=== PATIENT | female | born 1950 | race Caucasian/White ===

== ENCOUNTER 2019-02-09 10:46 | Inpatient (IN) | payer MEDICARE, SELFPAY ==
[2019-02-09] VITALS (20 sets, daily range): BP systolic 106–157; BP diastolic 55–101; PULSE 67–140; RESP 12–36; TEMP 36.1–36.7; O2SAT 94–100; BMI 22.8; BMI 24.3
--- NOTE | 2019-02-09 11:01 | RAD_ITS ---
STUDY: X-RAY CHEST REASON FOR EXAM: Female, 68 years old. Shortness of breath, dyspnea TECHNIQUE: AP COMPARISON: None. FINDINGS: EKG leads project over the chest. There is hyperinflation of the lungs consistent with chronic obstructive lung disease (COPD). Asymmetric parenchymal opacity of the right lung. There is no demonstrated pleural abnormality. There is moderate cardiac enlargement. Normal mediastinum and vaibhav. Normal visualized pulmonary arteries. Normal visualized aortic arch and descending thoracic aorta. There is S-shaped scoliosis of the thoracolumbar spine. Normal visualized ribs, clavicles, and shoulders. There is no demonstrated abnormality of the visualized soft tissue structures of the upper abdomen. RAD/Chest 1 View (Portable) IMPRESSION: 1. Right lower lobe infiltrate could represent pneumonia. 2. Chronic obstructive airway disease. 3. Cardiomegaly. Electronically Signed: Alireza Gerber MD at 11:47 EDT , Service support ,
--- NOTE | 2019-02-09 11:02 | EKG12_ITS ---
Test Reason : SOB Blood Pressure : / mmHG Vent. Rate : 138 BPM Atrial Rate : 138 BPM P-R Int : 136 ms QRS Dur : 086 ms QT Int : 288 ms P-R-T Axes : 079 083 078 degrees QTc Int : 436 ms Sinus tachycardia Septal infarct , age undetermined Lateral infarct , age undetermined , cannot be excluded Abnormal ECG Confirmed by DIONY FORTE, KAREY ([id number]), photography editor LUIS DANIEL AHUJA ([id number]) on 02/11/2019 4:03:30 PM Referred By: MARYANA Confirmed By:KAREY VORA MD
[2019-02-09] MEDS: MethylPREDNISolone 125 MG/2 ML Vial 100 MG IV (11:14)
[2019-02-09] MEDS: 0.9% Normal Saline 1,000 ML 15 ML IV (11:14)
[2019-02-09 11:21] LABS: Absolute Lymphocyte Count 0.82 X10^3/ul (0.83-4.51); Absolute Neutrophil Count 9.3 X10^3/uL (2.0-7.7); Basophil# 0.02 X10^3/uL; Basophil% 0.2 % (0-1); Eosinophil# 0.02 X10^3/uL; Eosinophils% 0.2 % (0-5); Hematocrit 36.6 % (37-47); Hemoglobin 11.3 g/dl (12.0-15.0); Lymphocyte # 0.82 X10^3/ul (4.0); Lymphocyte % 7.5 % (19-41); Mean Corp Hgb Conc 30.9 g/gl (32-36); Mean Corpuscular Hgb 25.8 pg (27.0-32.0); Mean Corpuscular Volume 83.6 fL (81-99); Mean Platelet Vol. 9.6 fl (6.2-12.0); Monocyte# 0.73 X10^3/uL; Monocyte% 6.7 % (0-10); Neutrophil # 9.33 X10^3/uL (2.7-7.7); Neutrophil % 85.3 % (47-70); POSITIVE COUNT NO; POSITIVE DIFFERENTIAL NO; POSITIVE MORPHOLOGY NO; Platelet Count 467 K/mm3 (150-450); RBC Distribution Width CV 14.6 % (11.6-14.6); RBC Distribution Width SD 44.8 fl (35.1-43.9); Red Blood Count 4.38 M/mm3 (4.2-5.4); White Blood Count 10.9 K/mm3 (4.4-11.0)
[2019-02-09 11:34] LABS: Anion Gap 8 (5-15); BUN 16 mg/dL (7-18); BUN/Creat Ratio 18.6 RATIO (10-20); Chloride 99 mmol/L (98-107); Creatinine, Serum 0.86 mg/dL (0.55-1.02); EST Glomerular Filtration Rate 70 mL/min (>60); Est Glom Filt Rate - Afr Amer 85 mL/min (>60); Estimated Creatinine Clearance 50.89 ml/min; Glucose 158 mg/dL (74-106); Potassium 4.3 mmol/L (3.5-5.1); Sodium Level 133 mmol/L (136-145)
[2019-02-09] MEDS: Ceftriaxone 1 GM/50 ML BAG IV (12:29)
[2019-02-09 12:57] LABS: Lactic Acid 2.5 mmol/L (0.4-2.0)
--- NOTE | 2019-02-09 13:04 | ED.VISSUMM ---
- ER Visit Summary Date of Service: 02/09/19 Chief Complaint: Shortness of breath History of Present Illness: The patient is a 68 F with shortness of breath that started yesterday. Patient does report some right upper chest tenderness that is reproducible. She has not had significant cough. She is a history of COPD but does not normally require oxygen or even use treatments at home at baseline. Patient states she did recently help take a cover off of the pool that had dirty water on top. She initially thought her chest soreness was from this. Physical Examination: Blood pressure is 157/96, temperature 97.4, heart rate 131, respiratory rate 36, pulse ox 94% on room air. Patient is sitting upright. She is tachypneic and speaking in short sentences. Heart is tachycardic. Lung sounds are diminished throughout. Abdomen is soft nontender. Test Results: EKG is sinus tach at 138. Anterior Q waves are noted. There is no prior study available for comparison. CBC was normal white count with 85% neutrophils. Hemoglobin 11.3. Chemistry studies grossly unremarkable. Troponin is indeterminate at 0.082. Lactate is 2.5. Portable chest x-ray shows right lower lobe infiltrate which may represent pneumonia. COPD changes are noted along with cardiomegaly. Emergency Department Course and Treatment: Patient was given Solu-Medrol along with aerosols. She had extreme air hunger and was placed on BiPAP which has greatly improved her symptoms. Patient has been given Rocephin and Zithromax. She will be admitted for further treatment. Treatment Plan: [] Disposition: Admit Impression: 1. COPD exacerbation 2. Right lower lobe pneumonia 3. Elevated troponin This note was generated with [employer] dictation software. It may contain incorrect words, spelling, and punctuation that were not noted in review of the chart prior to signing ED Disposition - Plan for ED Patient: Referrals: Linda Hooper MD [Primary Care Provider] -
--- NOTE | 2019-02-09 13:50 | PCM.HP.STD ---
Problem List (1) COPD exacerbation Status: Chronic (2) Right lower lobe pneumonia Status: Acute (3) Sepsis Status: Acute (4) Acute respiratory failure Status: Acute History of Present Illness Date of Admission: 02/09/19 Chief Complaint: Shortness of breath The patient is a 68 year old F with no past medical history presents with not feeling well for the last several days. She has had intermittent episodes of not feeling well and then feeling well over the last couple of weeks. She did not feel well on Mother's Day but that resolved. She does not see a doctor regularly. She presented today for shortness of breath and was found to have a right lower lobe pneumonia and was significantly tachycardic to 130-140. She was found to have an elevated troponin and elevated lactic acid to 2.5. In the ER she was giving a breathing treatment as well as a dose of steroids and started on BiPAP. She was also given azithromycin and Rocephin. She has right-sided chest pain which is reproducible on palpation. She denies having a history of chest pain or shortness of breath with exertion. Past Medical History Past Medical History (Chronic Problems): Chronic Problems COPD exacerbation (Chronic) Allergies No Known Allergies Allergy (Verified 02/09/19 10:48) Home Medications: Ambulatory Orders Medication Instructions Recorded Aspirin [Aspirin, Baby] 81 mg PO DAILY@0800 02/09/19 Multivitamin with Minerals 1 each PO DAILY 02/09/19 [Multiple Vitamin] Vitamin B Complex [B Complex] 1 each PO DAILY 02/09/19 Surgical History: no surgical history Smoking Status: Former smoker Tobacco Use: Cigarettes Alcohol: None Drugs: None - *Family History Maternal History Items: COPD, Heart Disease Paternal History Items: Heart Disease Review of Systems Constitutional: Denies: Chills, Fever, Weight Change HEENT: Denies: Head Aches, Sinus Congestion, Sinus Drainage Cardiovascular: Denies: Chest Pain, Palpitations Respiratory: Reports: Shortness of Breath. Denies: Cough, Shortness of breath at rest, Sputum production Gastrointestinal: Denies: Abdominal Pain, Nausea, Vomiting Genitourinary: Denies: Dysuria Musculoskeletal: Denies: Joint Pain, Joint Tenderness Skin: Denies: Rash, Wounds Neurological: Denies: Numbness, Tingling, Focal weakness Psychiatric: Denies: Anxiety, Depression Hematologic/ Lymphatic: Denies: Easy Bruising, Easy Bleeding VTE Information - Inpt Only VTE Present on Admission: No Patient Problems: Active and Suspected Problems Right lower lobe pneumonia (Acute) Sepsis (Acute) Acute respiratory failure (Acute) - Physical Exam General: Alert, Oriented x3, Cooperative, - - Mild distress now that she is comfortable on the BiPAP HEENT: Atraumatic, PERRLA, EOMI, Normocephalic Oral: Dry Mucosa Neck: Supple, No JVD Lungs: Clear to auscultation, - - Very poor air movement Cardiovascular: Regular Rhythm, Normal S1, Normal S2, No murmurs, Tachycardic Abdomen: Soft, Non Tender, Non-Distended, No Hepato-splenomegaly Extremities: No edema, Capillary Refill Less than 3 Seconds Skin: No rashes, No breakdown Neurological: Neuro grossly intact, Sensory exam intact to light touch and pain Psych/Mental Status: Normal Affect, Appropriate Vital Signs Temp Pulse Resp BP Pulse Ox 97.4 F L 129 H 30 H 141/73 H 95 02/09/19 10:48 02/09/19 13:27 02/09/19 13:27 02/09/19 13:27 02/09/19 13:27 Oxygen Flow Rate (L/min) 2 Oxygen Delivery Method Bi-pap Weight: 125 lb Body Mass Index (BMI) 22.8 Laboratory Tests Past 24 Hrs 02/09/19 02/09/19 02/09/19 10:59 10:59 10:59 WBC 10.9 RBC 4.38 Hgb 11.3 L Hct 36.6 L MCV 83.6 MCH 25.8 L MCHC 30.9 L RDW 14.6 RDW Differential 44.8 H Plt Count 467 H MPV 9.6 Immature Gran % (Auto) 0.100 Neut % (Auto) 85.3 H Lymph % (Auto) 7.5 L [place] % (Auto) 6.7 Eos % (Auto) 0.2 Baso % (Auto) 0.2 Absolute Neuts (auto) 9.3 H Absolute Lymphs (auto) 0.82 L Total Counted Not Reportable Sodium 133 L Potassium 4.3 Chloride 99 Carbon Dioxide 26.0 Anion Gap 8 BUN 16 Creatinine 0.86 Estim Creat Clear Calc 50.89 Est GFR (MDRD) Af Amer 85 Est GFR (MDRD) Non-Af 70 BUN/Creatinine Ratio 18.6 Glucose 158 H Lactic Acid 2.5 H Calcium 9.0 Troponin I 0.082 H Assessment/Plan All Active Problems Right lower lobe pneumonia (Acute) Sepsis (Acute) Acute respiratory failure (Acute) 1. Acute respiratory distress secondary to community-acquired pneumonia and COPD exacerbation leading to sepsis -We will obtain a strep and Legionella urine antigen -Will treat her COPD with IV steroids and aerosols -We will continue with Unasyn and azithromycin for her pneumonia -Blood cultures, and sputum culture pending -We will continue with the BiPAP for now -She does not appear to be hypoxic on admission with a sat of 94% however given her tachypnea and her use of accessory muscles she was placed on BiPAP prior to my evaluation -Lactate is 2.5, will give her IV fluids at 125 cc/h and follow the lactic acid 2. Elevated troponin -She has no history of cardiac disease -This is more than likely secondary to her extreme tachycardia and sepsis -We will trend however will not likely intervene until she is stable from a respiratory status DVT: Lovenox Code Visit Inpatient E&M: 77027 Init Hosp L3
[2019-02-09 16:02] LABS: Reflex Lactate? Y
--- NOTE | 2019-02-09 16:03 | CPS ---
Pt transferred from ER to PCU on Bipap. Pt bk transport well on Bipap. Pt to room and transferred from ER cot to PCU bed while still on Bipap and made transfer on own. Post transfer pt became very anxious and stated she couldn't breath. Attempt to calm pt down was made. Pt stated that she wasn't getting any oxygen. Pt was reassured that she was and informed that Bipap machine was operating properly and her pulse ox was 97% and that's good. Pt BS were diminished bilateral. Albuterol was administered by aerosol. Dr Galloway at bedside to assess pt. Pt stated she felt much better post aerosol rx
[2019-02-09 16:57] LABS: Lactic Acid 2.6 mmol/L (0.4-2.0)
[2019-02-09] MEDS: 0.9% Normal Saline 1,000 ML 125 ML IV (18:02)
[2019-02-09] MEDS: Ipratropium/Albuterol Sulfate 3 ML AMPUL.NEB INHALATION ×2 (19:21→22:45)
[2019-02-09] MEDS: 0.9% NaCl Peripheral Flush Adult/Peds IV (21:57)
[2019-02-10] VITALS (20 sets, daily range): BP systolic 93–117; BP diastolic 62–76; PULSE 104–130; RESP 12–30; TEMP 36.1–37.1; O2SAT 93–99
[2019-02-10] MEDS: 0.9% Normal Saline 1,000 ML 125 ML IV ×3 (02:28→21:30)
[2019-02-10] MEDS: 0.9% NaCl Peripheral Flush Adult/Peds IV ×2 (05:30→21:30)
[2019-02-10 06:33] LABS: Absolute Lymphocyte Count 0.37 X10^3/ul (0.83-4.51); Absolute Neutrophil Count 6.5 X10^3/uL (2.0-7.7); Eosinophil# 0.01 X10^3/uL; Eosinophils% 0.1 % (0-5); Hematocrit 32.4 % (37-47); Hemoglobin 10.1 g/dl (12.0-15.0); Lymphocyte # 0.37 X10^3/ul (4.0); Lymphocyte % 5.1 % (19-41); Mean Corp Hgb Conc 31.2 g/gl (32-36); Mean Corpuscular Volume 83.3 fL (81-99); Monocyte# 0.27 X10^3/uL; Monocyte% 3.8 % (0-10); Neutrophil # 6.54 X10^3/uL (2.7-7.7); Neutrophil % 90.9 % (47-70); Platelet Count 356 K/mm3 (150-450); RBC Distribution Width CV 14.7 % (11.6-14.6); Red Blood Count 3.89 M/mm3 (4.2-5.4); White Blood Count 7.2 K/mm3 (4.4-11.0)
[2019-02-10 06:45] LABS: Differential Indicated SCAN CRITERIA MET; POSITIVE COUNT NO; POSITIVE DIFFERENTIAL YES; POSITIVE MORPHOLOGY NO
[2019-02-10 07:08] LABS: Differential Comment SCANNED
[2019-02-10 07:31] LABS: Anion Gap 6 (5-15); BUN 11 mg/dL (7-18); BUN/Creat Ratio 16.9 RATIO (10-20); Calcium,Total 8.3 mg/dL (8.5-10.1); Chloride 106 mmol/L (98-107); Creatinine, Serum 0.65 mg/dL (0.55-1.02); EST Glomerular Filtration Rate 97 mL/min (>60); Est Glom Filt Rate - Afr Amer 117 mL/min (>60); Estimated Creatinine Clearance 41.76 ml/min; Glucose 116 mg/dL (74-106); Potassium 4.7 mmol/L (3.5-5.1); Sodium Level 138 mmol/L (136-145)
[2019-02-10] MEDS: Ipratropium/Albuterol Sulfate 3 ML AMPUL.NEB INHALATION ×5 (07:46→23:03)
--- NOTE | 2019-02-10 08:24 | PCM.PN.HOSP ---
Patient Problems: Active and Suspected Problems Right lower lobe pneumonia (Acute) Sepsis (Acute) Acute respiratory failure (Acute) Subjective: Feeling better today, still on the BiPAP though she seems a bit more 80s. She states that she is breathing easier. Vitals/I&O's: Vital Signs Temp Pulse Resp BP Pulse Ox 97.0 F L 117 H 19 H 111/76 98 02/10/19 04:00 02/10/19 07:00 02/10/19 04:00 02/10/19 04:00 02/10/19 04:00 Oxygen Flow Rate (L/min) 2 Oxygen Delivery Method Bi-pap Weight: 132 lb 4.438 oz Body Mass Index (BMI) 24.3 Intake and Output for Last 24 Hours 02/08/19 02/09/19 02/10/19 23:59 23:59 23:59 Intake Total 678 / 678 1611 / 1611 Balance 678 / 678 1611 / 1611 General: Alert, Oriented x3, Cooperative, - - Little distress now that she is comfortable on the BiPAP HEENT: Atraumatic, PERRLA, EOMI, Normocephalic Oral: Dry Mucosa Neck: Supple, No JVD Lungs: Clear to auscultation, - - Very poor air movement Cardiovascular: Regular Rhythm, Normal S1, Normal S2, No murmurs, Tachycardic Abdomen: Soft, Non Tender, Non-Distended, No Hepato-splenomegaly Extremities: No edema, Capillary Refill Less than 3 Seconds Skin: No rashes, No breakdown Neurological: Neuro grossly intact, Sensory exam intact to light touch and pain Psych/Mental Status: Normal Affect, Appropriate Microbiology Past 72 Hours 02/10/19 04:07 Urine, Clean Catch Legionella Antigen - Final 02/10/19 04:07 Urine, Clean Catch Streptococcus pneumoniae Antigen (M - Final Laboratory Results 02/09/19 10:59: WBC 10.9, RBC 4.38, Hgb 11.3 L, Hct 36.6 L, MCV 83.6, MCH 25.8 L, MCHC 30.9 L, RDW 14.6, RDW Differential 44.8 H, Plt Count 467 H, MPV 9.6, Immature Gran % (Auto) 0.100, Neut % (Auto) 85.3 H, Lymph % (Auto) 7.5 L, [place] % (Auto) 6.7, Eos % (Auto) 0.2, Baso % (Auto) 0.2, Absolute Neuts (auto) 9.3 H, Absolute Lymphs (auto) 0.82 L, Total Counted Not Reportable 02/09/19 10:59: Sodium 133 L, Potassium 4.3, Chloride 99, Carbon Dioxide 26.0, Anion Gap 8, BUN 16, Creatinine 0.86, Estim Creat Clear Calc 50.89, Est GFR (MDRD) Af Amer 85, Est GFR (MDRD) Non-Af 70, BUN/Creatinine Ratio 18.6, Glucose 158 H, Calcium 9.0, Troponin I 0.082 H 02/09/19 10:59: Lactic Acid 2.5 H 02/09/19 14:49: Troponin I 0.130 H 02/09/19 16:18: Lactic Acid 2.6 H 02/09/19 18:10: Troponin I 0.124 H 02/10/19 05:50: WBC 7.2, RBC 3.89 L, Hgb 10.1 L, Hct 32.4 L, MCV 83.3, MCH 26.0 L, MCHC 31.2 L, RDW 14.7 H, RDW Differential 44.0 H, Plt Count 356, MPV 10.0, Immature Gran % (Auto) 0.100, Neut % (Auto) 90.9 H, Lymph % (Auto) 5.1 L, [place] % (Auto) 3.8, Eos % (Auto) 0.1, Baso % (Auto) 0.0, Absolute Neuts (auto) 6.5, Absolute Lymphs (auto) 0.37 L, Total Counted Not Reportable, Differential Comment SCANNED 02/10/19 05:50: Sodium 138, Potassium 4.7, Chloride 106, Carbon Dioxide 26.0, Anion Gap 6, BUN 11, Creatinine 0.65, Estim Creat Clear Calc 41.76, Est GFR (MDRD) Af Amer 117, Est GFR (MDRD) Non-Af 97, BUN/Creatinine Ratio 16.9, Glucose 116 H, Calcium 8.3 L Current Medications Acetaminophen (Tylenol) 650 mg PO Q6H PRN PRN PRN Reason: Mild pain 1-3/Temp > 100.7 F Albuterol/Ipratropium (Duoneb) 3 ml INHALATION Q4HWA.RT [facility] Last Admin: 02/10/19 07:46 Dose: 3 ml Enoxaparin Sodium (Lovenox) 40 mg SC DAILY@1000 GALINDO Sodium Chloride () 1,000 mls @ 125 mls/hr IV .Q8H [facility] Last Admin: 02/10/19 05:43 Dose: Not Given Ampicillin Sodium/Sulbactam (Sodium 3 gm/ Sodium Chloride) 112 mls @ 150 mls/hr IV Q8 [facility] Last Admin: 02/10/19 05:29 Dose: 150 mls/hr Azithromycin 500 mg/ Dextrose 255 mls @ 250 mls/hr IV Q24 GALINDO Methylprednisolone (Solu-Medrol) 40 mg IV Q8 [facility] Last Admin: 02/10/19 05:30 Dose: 40 mg Ondansetron HCl (Zofran) 4 mg IV Q8H PRN PRN PRN Reason: NAUSEA/VOMITING Sodium Chloride () 5 - 15 ml IV UD PRN PRN Reason: SALINE FLUSH Last Admin: 02/10/19 05:30 Dose: 10 ml Medical Necessity - Tobacco Use Smoking Status: Former smoker Tobacco Use: Cigarettes Assessment/Plan All Active Problems Right lower lobe pneumonia (Acute) Sepsis (Acute) Acute respiratory failure (Acute) 1. Acute respiratory distress secondary to community-acquired pneumonia and COPD exacerbation leading to sepsis -strep and Legionella urine antigen are negative -Will treat her COPD with IV steroids and aerosols -We will continue with Unasyn and azithromycin for her pneumonia -Blood cultures, and sputum culture pending -We will continue with the BiPAP for now -She does not appear to be hypoxic on admission with a sat of 94% however given her tachypnea and her use of accessory muscles she was placed on BiPAP prior to my evaluation -Lactate is 2.5 continue with IV fluids at 125 cc/h 2. Elevated troponin -She has no history of cardiac disease -This is more than likely secondary to her extreme tachycardia and sepsis, her troponin peaked at 0.130 and then decreased to 0.124 -This is indicative to me of her demand ischemia, she will likely need outpatient follow-up for this issue. DVT: Lovenox Code Visit Inpatient E&M: 68013 Subs Hosp L2
--- NOTE | 2019-02-10 08:36 | PN_ITS ---
Patient Problems: Active and Suspected Problems Right lower lobe pneumonia (Acute) Sepsis (Acute) Acute respiratory failure (Acute) Subjective: Feeling better today, still on the BiPAP though she seems a bit more 80s. She states that she is breathing easier. Vitals/I&O's: Vital Signs Temp Pulse Resp BP Pulse Ox 97.0 F L 117 H 19 H 111/76 98 02/10/19 04:00 02/10/19 07:00 02/10/19 04:00 02/10/19 04:00 02/10/19 04:00 Oxygen Flow Rate (L/min) 2 Oxygen Delivery Method Bi-pap Weight: 132 lb 4.438 oz Body Mass Index (BMI) 24.3 Intake and Output for Last 24 Hours 02/08/19 02/09/19 02/10/19 23:59 23:59 23:59 Intake Total 678 / 678 1611 / 1611 Balance 678 / 678 1611 / 1611 General: Alert, Oriented x3, Cooperative, - - Little distress now that she is comfortable on the BiPAP HEENT: Atraumatic, PERRLA, EOMI, Normocephalic Oral: Dry Mucosa Neck: Supple, No JVD Lungs: Clear to auscultation, - - Very poor air movement Cardiovascular: Regular Rhythm, Normal S1, Normal S2, No murmurs, Tachycardic Abdomen: Soft, Non Tender, Non-Distended, No Hepato-splenomegaly Extremities: No edema, Capillary Refill Less than 3 Seconds Skin: No rashes, No breakdown Neurological: Neuro grossly intact, Sensory exam intact to light touch and pain Psych/Mental Status: Normal Affect, Appropriate Microbiology Past 72 Hours 02/10/19 04:07 Urine, Clean Catch Legionella Antigen - Final 02/10/19 04:07 Urine, Clean Catch Streptococcus pneumoniae Antigen (M - Final Laboratory Results 02/09/19 10:59: WBC 10.9, RBC 4.38, Hgb 11.3 L, Hct 36.6 L, MCV 83.6, MCH 25.8 L , MCHC 30.9 L, RDW 14.6, RDW Differential 44.8 H, Plt Count 467 H, MPV 9.6, Immature Gran % (Auto) 0.100, Neut % (Auto) 85.3 H, Lymph % (Auto) 7.5 L, [place] % (Auto) 6.7, Eos % (Auto) 0.2, Baso % (Auto) 0.2, Absolute Neuts (auto) 9.3 H, Absolute Lymphs (auto) 0.82 L, Total Counted Not Reportable 02/09/19 10:59: Sodium 133 L, Potassium 4.3, Chloride 99, Carbon Dioxide 26.0, Anion Gap 8, BUN 16, Creatinine 0.86, Estim Creat Clear Calc 50.89, Est GFR (MDRD) Af Amer 85, Est GFR (MDRD) Non-Af 70, BUN/Creatinine Ratio 18.6, Glucose 158 H, Calcium 9.0, Troponin I 0.082 H 02/09/19 10:59: Lactic Acid 2.5 H 02/09/19 14:49: Troponin I 0.130 H 02/09/19 16:18: Lactic Acid 2.6 H 02/09/19 18:10: Troponin I 0.124 H 02/10/19 05:50: WBC 7.2, RBC 3.89 L, Hgb 10.1 L, Hct 32.4 L, MCV 83.3, MCH 26.0 L, MCHC 31.2 L, RDW 14.7 H, RDW Differential 44.0 H, Plt Count 356, MPV 10.0, Immature Gran % (Auto) 0.100, Neut % (Auto) 90.9 H, Lymph % (Auto) 5.1 L, [place] % (Auto) 3.8, Eos % (Auto) 0.1, Baso % (Auto) 0.0, Absolute Neuts (auto) 6.5, Absolute Lymphs (auto) 0.37 L, Total Counted Not Reportable, Differential Comment SCANNED 02/10/19 05:50: Sodium 138, Potassium 4.7, Chloride 106, Carbon Dioxide 26.0, Anion Gap 6, BUN 11, Creatinine 0.65, Estim Creat Clear Calc 41.76, Est GFR (MDRD) Af Amer 117, Est GFR (MDRD) Non-Af 97, BUN/Creatinine Ratio 16.9, Glucose 116 H, Calcium 8.3 L Current Medications Acetaminophen (Tylenol) 650 mg PO Q6H PRN PRN PRN Reason: Mild pain 1-3/Temp > 100.7 F Albuterol/Ipratropium (Duoneb) 3 ml INHALATION Q4HWA.RT [facility] Last Admin: 02/10/19 07:46 Dose: 3 ml Enoxaparin Sodium (Lovenox) 40 mg SC DAILY@1000 GALINDO Sodium Chloride () 1,000 mls @ 125 mls/hr IV .Q8H [facility] Last Admin: 02/10/19 05:43 Dose: Not Given Ampicillin Sodium/Sulbactam (Sodium 3 gm/ Sodium Chloride) 112 mls @ 150 mls/hr IV Q8 [facility] Last Admin: 02/10/19 05:29 Dose: 150 mls/hr Azithromycin 500 mg/ Dextrose 255 mls @ 250 mls/hr IV Q24 GALINDO Methylprednisolone (Solu-Medrol) 40 mg IV Q8 [facility] Last Admin: 02/10/19 05:30 Dose: 40 mg Ondansetron HCl (Zofran) 4 mg IV Q8H PRN PRN PRN Reason: NAUSEA/VOMITING Sodium Chloride () 5 - 15 ml IV UD PRN PRN Reason: SALINE FLUSH Last Admin: 02/10/19 05:30 Dose: 10 ml Medical Necessity - Tobacco Use Smoking Status: Former smoker Tobacco Use: Cigarettes Assessment/Plan All Active Problems Right lower lobe pneumonia (Acute) Sepsis (Acute) Acute respiratory failure (Acute) 1. Acute respiratory distress secondary to community-acquired pneumonia and COPD exacerbation leading to sepsis -strep and Legionella urine antigen are negative -Will treat her COPD with IV steroids and aerosols -We will continue with Unasyn and azithromycin for her pneumonia -Blood cultures, and sputum culture pending -We will continue with the BiPAP for now -She does not appear to be hypoxic on admission with a sat of 94% however given her tachypnea and her use of accessory muscles she was placed on BiPAP prior to my evaluation -Lactate is 2.5 continue with IV fluids at 125 cc/h 2. Elevated troponin -She has no history of cardiac disease -This is more than likely secondary to her extreme tachycardia and sepsis, her troponin peaked at 0.130 and then decreased to 0.124 -This is indicative to me of her demand ischemia, she will likely need outpatient follow-up for this issue. DVT: Lovenox Code Visit Inpatient E&M: 30547 Subs Hosp L2
[2019-02-10] MEDS: Enoxaparin 40 MG/0.4 ML Syringe SC (09:49)
[2019-02-11] VITALS (24 sets, daily range): BP systolic 109–137; BP diastolic 66–116; PULSE 109–129; RESP 12–33; TEMP 36.2–37.3; O2SAT 93–100
[2019-02-11] MEDS: Ipratropium/Albuterol Sulfate 3 ML AMPUL.NEB INHALATION ×3 (02:57→20:42)
[2019-02-11] MEDS: 0.9% Normal Saline 1,000 ML 125 ML IV (05:34)
[2019-02-11] MEDS: 0.9% NaCl Peripheral Flush Adult/Peds IV ×5 (05:36→21:32)
[2019-02-11] MEDS: Enoxaparin 40 MG/0.4 ML Syringe SC (08:54)
[2019-02-11] MEDS: Acetaminophen 325 MG Tablet 650 MG PO (08:59)
[2019-02-11] MEDS: Ceftriaxone 1 GM/50 ML BAG IV (10:50)
--- NOTE | 2019-02-11 10:59 | CASEMGMT ---
RONI BRISENO assessment: Face to Face with patient for initial transition planning/care coordination assessment. RONI BRISENO introduced self and role at [facility], pt voices understanding and consents to assessment at this time. Pt is sitting up in bed with conversational dyspnea and nasal canula in place. Pt is A/Ox4 at this time and answers all questions appropriately at this time. Care providers, pharmacy, and demographics verified/updated at this time. PCP: [facility]ie Specialists: Pt states no current specialists. Preferred [facility]acy: [facility] Insurance: [facility] Prescription Benefit: [facility] [employer] Living Will/HPOA: Pt states does not have LW/HPOA and would like info at this time. Pt provided with AD info at this time. LNOK: Jenaro Phelan, ; Tristen Phelan, son Living Arrangements: Pt states lives with in 2 story home and states it can be set up to live on the main level, if necessary. Pt states is independent with ADL's. Transportation: Pt states drives self and states no transportation concerns at this time. DME/HHC: Pt states has grab bars by toilet and shower chair. Pt states no need for any further DME at this time. Pt states that she would like [facility] if she were to need oxygen at discharge. Pt states no hx of HHC or SNF in the past. Pt states no concerns with going home at time of discharge. Pt states is retired. Pt states does not smoke or drink ETOH. Pt states no further questions/concerns/needs at this time. CM to follow for home oxygen and for any further discharge planning/needs. Advised pt to ask for CM if any further questions/concerns/needs arise, voices understanding. Pt Goal: Home Plan: Home, pending home oxygen testing. [place] RONI BRISENO
--- NOTE | 2019-02-11 12:20 | ECHOD_ITS ---
Reason For Study: DYSPNEA Procedure This was a 2D Doppler, Color Flow transthoracic echocardiogram. Myocardial strain analysis was performed in this exam to aid in the assessment of cardiac function. Exam performed portable in patient room. Left Ventricle Normal LV size. The estimated ejection fraction is 15 %. No regional wall motion abnormalities noted. There is severe global hypokinesis of the left ventricle. Right Ventricle Normal RV size. Normal systolic function. Atria The left atrium is moderately enlarged. Normal right atrium. Mitral Valve Bileaflet diffuse mitral valve thickening. Mild-Moderate (1-2+) eccentric mitral valve insufficiency. Tricuspid Valve Normal tricuspid valve. Moderate (2+) tricuspid valve insufficiency. Pulmonary artery systolic pressure is 60 mmHg. Aortic Valve Trisinus/trileaflet aortic valve. Mild (1+) aortic valve insufficiency. Pulmonic Valve Normal pulmonic valve. Great Vessels Normal aortic root. The pulmonary artery is normal size. The inferior vena cava is dilated. Pericardium/Pleural No pericardial effusion. MMode/2D Measurements & Calculations LVIDd: 5.4 cm IVSd: 0.78 cm Ao root diam: 3.0 cm LVIDs: 4.9 cm LVPWd: 0.95 cm RVDd: 4.2 cm FS: 9.4 % LAV(MOD-bp): 94.9 ml LA A4 area: 25.2 cm2 LA dimension(2D): 4.2 cm LAV(MOD-bp) Indexed: 59.2 ml/m2 LAV(MOD-sp2): 97.9 ml LAV(MOD-sp4): 85.1 ml RA A4 area: 21.8 cm2 Time Measurements MV dec time: 0.12 sec Doppler Measurements & Calculations MV E max talia: 121.4 cm/sec Ao V2 max: 98.8 cm/sec AI max talia: 127.1 cm/sec Ao max P.9 mmHg AI max P.5 mmHg AI dec slope: 469.7 cm/sec2 AI P1/2t: 79.3 msec LV V1 max: 64.6 cm/sec PA V2 max: 75.5 cm/sec PI end-d talia: 178.7 cm/sec LV V1 max P.7 mmHg TR max talia: 360.4 cm/sec TR max P.1 mmHg Interpretation Summary Normal LV size. The estimated ejection fraction is 15 %. No regional wall motion abnormalities noted. There is severe global hypokinesis of the left ventricle. Pulmonary artery systolic pressure is 60 mmHg. Moderate (2+) tricuspid valve insufficiency. The global longitudinal strain = -7.9% (abnormal). Ordering Physician: Venice Bowden Referring Physician: NICK LI Performed By: Glenna Miranda, TUCKERCS, RVT
[2019-02-11] MEDS: Fluticasone 0.05% 1 SPRAY NASAL.SRY NASAL ×2 (12:42→21:30)
[2019-02-11 13:42] LABS: Magnesium 2.2 mg/dL (1.6-2.6)
--- NOTE | 2019-02-11 13:50 | PN_ITS ---
Patient Problems: Active and Suspected Problems Right lower lobe pneumonia (Acute) Sepsis (Acute) Acute respiratory failure (Acute) Subjective: Ongoing shortness of breath both at rest and with exertion. She describes mid sternal and right-sided chest pressure that is ongoing. Patient is a nonproductive cough. No fevers or chills overnight last night. She has no history of heart disease. She has never had a stress test. She does have family history of cardiac disease. She remains anxious and tachycardic. - Physical Exam General: Alert, Oriented x3, Cooperative HEENT: Atraumatic, PERRLA, EOMI, Normocephalic Neck: Supple, No JVD, Negative Carotid Bruits Lungs: Rales, Wheezes Cardiovascular: Regular rate, No murmurs Abdomen: Bowel Sounds Present, Soft, Non Tender Extremities: No edema, Capillary Refill Less than 3 Seconds Skin: No rashes, No breakdown Musculoskeletal: No Tenderness to Palpation of Joints or Extremities Neurological: Cranial nerves II-XII grossly intact Psych/Mental Status: Appropriate, Anxious Vital Signs Temp Pulse Resp BP Pulse Ox 97.2 F L 127 H 19 H 111/76 97 02/11/19 10:48 02/11/19 11:48 02/11/19 10:48 02/11/19 10:48 02/11/19 10:48 Oxygen Flow Rate (L/min) 2 Oxygen Delivery Method Nasal Cannula Weight: 132 lb 4.438 oz Body Mass Index (BMI) 24.3 Intake and Output for Last 24 Hours 02/09/19 02/10/19 02/11/19 23:59 23:59 23:59 Intake Total 678 / 678 3918 / 3918 3088 / 3088 Output Total 300 / 300 325 / 325 Balance 678 / 678 3618 / 3618 2763 / 2763 Microbiology Past 72 Hours 02/10/19 04:07 Legionella Antigen - Final Urine, Clean Catch 02/10/19 04:07 Streptococcus pneumoniae Antigen (M - Final Urine, Clean Catch Laboratory Tests Past 24 Hrs 02/11/19 02/11/19 13:00 13:00 Magnesium Pending Troponin I 0.202 H Medical Necessity - Tobacco Use Smoking Status: Former smoker Tobacco Use: Cigarettes Assessment/Plan All Active Problems Right lower lobe pneumonia (Acute) Sepsis (Acute) Acute respiratory failure (Acute) 1. Acute severe sepsis (present on admission) secondary to acute right lower lobe community-acquired pneumonia-continue Rocephin and azithromycin, Mucinex, aerosols, Pep and incentive spirometer therapy. Sepsis criteria met with evidence of infection, tachycardia, tachypnea. No fever or leukocytosis. Lactic acidosis present on admission as well. Urine antigens are negative, blood cultures pending. Obtain sputum if possible. -Check Mag, TSH. 2. Acute hypoxic respiratory failure secondary to above combined with COPD exacerbation-continue Solu-Medrol, aerosols, above therapy. Patient does not use home oxygen. 3. Elevated troponin-in the setting of chest pressure and tightness, ongoing tachycardia, severe SOB-repeat troponin as it is increasing, obtain echocardio gram. Consult cardiology. Needs further cardiac workup. 4. Anxiety and depression-patient states ongoing issues with her mental health ever since losing her 2 family members in December and last June. She does not take anything at home for this. DVT prophylaxis: Lovenox This patient was seen by Richar Hughes PA-C under the supervision of Doctor Dennise.
--- NOTE | 2019-02-11 13:50 | EKG12_ITS ---
Test Reason : ELEVATED TROPONIN Blood Pressure : / mmHG Vent. Rate : 127 BPM Atrial Rate : 127 BPM P-R Int : 132 ms QRS Dur : 084 ms QT Int : 308 ms P-R-T Axes : 085 090 017 degrees QTc Int : 447 ms Sinus tachycardia Possible Left atrial enlargement Rightward axis Pulmonary disease pattern Nonspecific ST abnormality Abnormal ECG When compared with ECG of 09-FEB-2019 11:49, MANUAL COMPARISON REQUIRED, DATA IS UNCONFIRMED Confirmed by ADRIANA FORTE, PRITESH ([id number]), design editor LAUREN CASTRO ([id number]) on 02/12/2019 11:15:50 AM Referred By: CAM CHOWDHURY Confirmed By:PRITESH WRIGHT MD
--- NOTE | 2019-02-11 15:10 | CT_ITS ---
STUDY: CTA CHEST REASON FOR EXAM: Female, 68 years old. Shortness of breath, right-sided chest pressure RADIATION DOSAGE (If Supplied By Facility): CTDIvol = ( 7.78 ) mGy, DLP = ( 219.37 ) mGycm TECHNIQUE: The examination was performed with the intravenous administration of 75CC IV Isovue 370. Post-processing of the angiographic images was performed, with multiplanar reformation and 3D reconstruction. Individualized dose optimization techniques were used for this CT. COMPARISON: None. FINDINGS: Normal enhancement of the main pulmonary artery and right and left pulmonary arteries. Normal enhancement of the bilateral peripheral pulmonary arteries. There is no demonstrated pulmonary embolism. There are calcified plaques of the thoracic aorta. There is no demonstrated aortic dissection. Cardiomegaly is present. There is no pericardial effusion. Normal mediastinum. Normal hilar regions. Normal visualized trachea and bronchi. The lungs are well expanded. There are emphysematous changes of the lungs predominantly involving the upper lobes. There is right lower lobe atelectasis. There are small bilateral pleural effusions, right side larger than left. There is a 1.7 cm subcutaneous nodule of the lower posterior thorax possibly representing a sebaceous cyst. There are diffuse degenerative changes of the visualized thoracolumbar spine. There is a moderately severe thoracic dextroscoliosis. Normal visualized upper abdomen. CT/CTA Chest W/WO Contrast IMPRESSION: Normal CTA chest examination, without a demonstrated pulmonary embolism or arterial dissection. There are calcified plaques of the thoracic aorta. Cardiomegaly is present. There are emphysematous changes of the lungs predominantly involving the upper lobes. There is right lower lobe atelectasis. There are small bilateral pleural effusions, right side larger than left. Electronically Signed: Kelvin Tena MD at 16:48 EDT , Service support ,
[2019-02-11 15:28] LABS: T4 Free Direct 1.02 ng/dL (0.76-1.46)
--- NOTE | 2019-02-11 16:09 | PCM.CONS.C ---
Reason for Consult Date of Consultation: 02/11/19 Reason for Consultation: Shortness of breath and abnormal cardiac enzymes History of Present Illness: The patient is a 68 year old F with no previous cardiac history who presented to the emergency room because of shortness of breath over the last few days. She is also been fatigued and she thought that she had some discomfort on the right posterior side of her chest. She had no dizziness or diaphoresis no near syncope or syncope. She presented to the emergency room was evaluated and thought to have a pneumonia. She was admitted to the telemetry care unit and given intravenous fluids as well as cardiac enzymes obtained. It was noted to be somewhat abnormal and therefore cardiology was called for evaluation and management. She denies any chest pain suggestive of angina. She is mildly tachypneic. [] Past Medical History Allergies/Adverse Reactions: Allergies No Known Allergies Allergy (Verified 02/09/19 10:48) Home Medications: Ambulatory Orders Medication Instructions Recorded Aspirin [Aspirin, Baby] 81 mg PO DAILY@0800 02/09/19 Multivitamin with Minerals 1 each PO DAILY 02/09/19 [Multiple Vitamin] Vitamin B Complex [B Complex] 1 each PO DAILY 02/09/19 Past Medical History (Chronic Problems): Chronic Problems COPD exacerbation (Chronic) Surgical History: no surgical history - *Family History Maternal History Items: COPD, Heart Disease Paternal History Items: Heart Disease Smoking Status: Former smoker Tobacco Use: Cigarettes Alcohol: None Drugs: None Review of Systems - Review of Systems General: Reports: Fatigue, Malaise. Denies: Fever, Night Sweats HEENT: Denies: Vision Change Cardiovascular: Reports: Shortness of Breath, Shortness of Breath at Rest, Shortness of Breath with Exertion. Denies: Chest Discomfort, Orthopnea, PND, Peripheral Edema, Palpitations, Lightheadedness, Dizziness, Near Syncope, Syncope Respiratory: Reports: Cough, Pleurtic Chest Pain. Denies: Sputum Production, Hemoptysis Gastrointestinal: Denies: Hematemesis, Hematochezia, Melena Genitourinary: Denies: Dysuria, Hematuria Muscoloskeletal: Denies: Myalgias Skin: Denies: Rash Neurological: Denies: Dizziness Psychiatric: Denies: Anxiety Endocrine: Denies: Heat Intolerance Hematologic/ Lymphatic: Denies: Anemia Subjectve: Middle-aged lady looking older than his stated age Objective: Vital Signs Temp Pulse Resp BP Pulse Ox 97.8 F 128 H 33 H 137/116 H 96 02/11/19 15:34 02/11/19 15:34 02/11/19 15:34 02/11/19 15:34 02/11/19 15:34 Oxygen Flow Rate (L/min) 2 Oxygen Delivery Method Nasal Cannula Weight: 132 lb 4.438 oz Body Mass Index (BMI) 24.3 Intake and Output for Last 24 Hours 02/09/19 02/10/19 02/11/19 23:59 23:59 23:59 Intake Total 678 / 678 3918 / 3918 3088 / 3088 Output Total 300 / 300 325 / 325 Balance 678 / 678 3618 / 3618 2763 / 2763 General: Awake, Alert, Oriented x 3, Ill Appearing, In Acute Distress HEENT: PERRL, EOMI, Sclera Non Icteric Oral: Moist Mucosa Neck: Supple, Good ROM, No Lymph Node Enlargement Lungs: Diminished Guilherme Bases Cardiovascular: Regular Rhythm, Normal S1, Normal S2, No Murmurs, No Rubs, Positive S3 Vascular: No Carotid Bruits, Normal Femoral Pulses, Normal Radial Pulses, Normal Dorsalis Pedal Pulse, Normal Posterior Tibial Pulses Abdomen: Bowel Sounds Present, Soft, Non Tender, No HSM, No Organomegaly Extremities: Trace RLE Edema, Trace LLE Edema Musculoskeletal: No Erythema Skin: No Rashes Lymphatic: No Lymph Node Enlargement Neurological: No Focal Motor or Sensory Deficit Psych/Mental Status: Appropriate 02/11/19 13:00: Magnesium 2.2 02/11/19 13:00: Troponin I 0.202 H Rhythm: EKG: Normal sinus tachycardia with a rate of [address]-T wave changes Assessment/Plan 1. Shortness of breath-likely congestive heart failure acute systolic Patient presents with shortness of breath and has bilateral rales as well as an S3 and her echocardiogram does corroborate the findings of systolic congestive heart failure with an estimated ejection fraction of approximately 15%. My recommendation would be to discontinue the intravenous fluids Start Lasix 40 mg IV twice daily Start carvedilol 3.125 mg twice a day If patient tolerates JOSE ANGEL inhibitor would start that in a.m. Reevaluate the need for antibiotics Need to consider left heart catheterization prior to discharge. Further plans will depend on her clinical course.
--- NOTE | 2019-02-11 16:13 | CON.PCM_ITS ---
Reason for Consult Date of Consultation: 02/11/19 Reason for Consultation: Shortness of breath and abnormal cardiac enzymes History of Present Illness: The patient is a 68 year old F with no previous cardiac history who presented to the emergency room because of shortness of breath over the last few days. She is also been fatigued and she thought that she had some discomfort on the right posterior side of her chest. She had no dizziness or diaphoresis no near syncope or syncope. She presented to the emergency room was evaluated and thought to have a pneumonia. She was admitted to the telemetry care unit and given intravenous fluids as well as cardiac enzymes obtained. It was noted to be somewhat abnormal and therefore cardiology was called for evaluation and management. She denies any chest pain suggestive of angina. She is mildly tachypneic. [] Past Medical History Allergies/Adverse Reactions: Allergies No Known Allergies Allergy (Verified 02/09/19 10:48) Home Medications: Ambulatory Orders Medication Instructions Recorded Aspirin [Aspirin, Baby] 81 mg PO DAILY@0800 02/09/19 Multivitamin with Minerals 1 each PO DAILY 02/09/19 [Multiple Vitamin] Vitamin B Complex [B Complex] 1 each PO DAILY 02/09/19 Past Medical History (Chronic Problems): Chronic Problems COPD exacerbation (Chronic) Surgical History: no surgical history - *Family History Maternal History Items: COPD, Heart Disease Paternal History Items: Heart Disease Smoking Status: Former smoker Tobacco Use: Cigarettes Alcohol: None Drugs: None Review of Systems - Review of Systems General: Reports: Fatigue, Malaise. Denies: Fever, Night Sweats HEENT: Denies: Vision Change Cardiovascular: Reports: Shortness of Breath, Shortness of Breath at Rest, Shortness of Breath with Exertion. Denies: Chest Discomfort, Orthopnea, PND, Peripheral Edema, Palpitations, Lightheadedness, Dizziness, Near Syncope, Syncope Respiratory: Reports: Cough, Pleurtic Chest Pain. Denies: Sputum Production, Hemoptysis Gastrointestinal: Denies: Hematemesis, Hematochezia, Melena Genitourinary: Denies: Dysuria, Hematuria Muscoloskeletal: Denies: Myalgias Skin: Denies: Rash Neurological: Denies: Dizziness Psychiatric: Denies: Anxiety Endocrine: Denies: Heat Intolerance Hematologic/ Lymphatic: Denies: Anemia Subjectve: Middle-aged lady looking older than his stated age Objective: Vital Signs Temp Pulse Resp BP Pulse Ox 97.8 F 128 H 33 H 137/116 H 96 02/11/19 15:34 02/11/19 15:34 02/11/19 15:34 02/11/19 15:34 02/11/19 15:34 Oxygen Flow Rate (L/min) 2 Oxygen Delivery Method Nasal Cannula Weight: 132 lb 4.438 oz Body Mass Index (BMI) 24.3 Intake and Output for Last 24 Hours 02/09/19 02/10/19 02/11/19 23:59 23:59 23:59 Intake Total 678 / 678 3918 / 3918 3088 / 3088 Output Total 300 / 300 325 / 325 Balance 678 / 678 3618 / 3618 2763 / 2763 General: Awake, Alert, Oriented x 3, Ill Appearing, In Acute Distress HEENT: PERRL, EOMI, Sclera Non Icteric Oral: Moist Mucosa Neck: Supple, Good ROM, No Lymph Node Enlargement Lungs: Diminished Guilherme Bases Cardiovascular: Regular Rhythm, Normal S1, Normal S2, No Murmurs, No Rubs, Positive S3 Vascular: No Carotid Bruits, Normal Femoral Pulses, Normal Radial Pulses, Normal Dorsalis Pedal Pulse, Normal Posterior Tibial Pulses Abdomen: Bowel Sounds Present, Soft, Non Tender, No HSM, No Organomegaly Extremities: Trace RLE Edema, Trace LLE Edema Musculoskeletal: No Erythema Skin: No Rashes Lymphatic: No Lymph Node Enlargement Neurological: No Focal Motor or Sensory Deficit Psych/Mental Status: Appropriate 02/11/19 13:00: Magnesium 2.2 02/11/19 13:00: Troponin I 0.202 H Rhythm: EKG: Normal sinus tachycardia with a rate of [address]-T wave changes Assessment/Plan 1. Shortness of breath-likely congestive heart failure acute systolic Patient presents with shortness of breath and has bilateral rales as well as an S3 and her echocardiogram does corroborate the findings of systolic congestive heart failure with an estimated ejection fraction of approximately 15%. * My recommendation would be to discontinue the intravenous fluids * Start Lasix 40 mg IV twice daily * Start carvedilol 3.125 mg twice a day * If patient tolerates JOSE ANGEL inhibitor would start that in a.m. * Reevaluate the need for antibiotics * Need to consider left heart catheterization prior to discharge. * Further plans will depend on her clinical course.
[2019-02-11] MEDS: Aspirin 81 MG TAB.CHEW PO (16:32)
[2019-02-11 16:34] LABS: Free T3 2.2 pg/mL (2.18-3.98)
[2019-02-11] MEDS: Furosemide 40 MG/4 ML Vial IV (16:35)
[2019-02-11] MEDS: Enoxaparin 60 MG/0.6 ML Syringe SC (16:35)
[2019-02-11 16:36] LABS: Ferritin 33 ng/mL (8-252); Iron 19 ug/dL (50-170); Iron Binding Capacity,Total 352 ug/dL (250-450); PERCENT IRON SATURATION 5.4 % (15.0-55.0)
[2019-02-11 16:42] LABS: AST(SGOT) 52 U/L (15-37); Alanine Aminotransfer ALT/SGPT 62 U/L (13-56); Albumin, Serum 3.2 g/dL (3.2-5.0); Alkaline Phosphatase 68 U/L (45-117); Bilirubin, Direct 0.15 mg/dL (0.00-0.30); Globulin 3.1 g/dL (2.2-4.2); Protein, Total 6.3 g/dL (6.4-8.2)
[2019-02-11 17:08] LABS: Vitamin B12 650 pg/mL (211-911)
[2019-02-11] MEDS: Carvedilol 3.125 MG TABLET PO (17:38)
[2019-02-11] MEDS: Atorvastatin Calcium 40 MG Tablet PO (21:34)
[2019-02-12] VITALS (17 sets, daily range): BP systolic 110–131; BP diastolic 68–86; PULSE 96–125; RESP 12–22; TEMP 36.7–37.2; O2SAT 93–98
[2019-02-12] MEDS: 0.9% NaCl Peripheral Flush Adult/Peds IV ×3 (06:13→17:59)
[2019-02-12] MEDS: Enoxaparin 60 MG/0.6 ML Syringe SC (06:13)
[2019-02-12 06:23] LABS: Anion Gap 6 (5-15); BUN 21 mg/dL (7-18); BUN/Creat Ratio 35.1 RATIO (10-20); Calcium,Total 8.6 mg/dL (8.5-10.1); Chloride 103 mmol/L (98-107); Cholesterol 164 mg/dL (200); EST Glomerular Filtration Rate 106 mL/min (>60); Est Glom Filt Rate - Afr Amer 129 mL/min (>60); Estimated Creatinine Clearance 41.76 ml/min; Glucose 133 mg/dL (74-106); High Density Lipoprotein 91 mg/dL; Potassium 4.3 mmol/L (3.5-5.1); Sodium Level 136 mmol/L (136-145); Triglycerides 108 mg/dL; Very Low Density Lipoprotein 22 mg/dL (5-40)
[2019-02-12 06:39] LABS: Absolute Lymphocyte Count 0.42 X10^3/ul (0.83-4.51); Absolute Neutrophil Count 9.5 X10^3/uL (2.0-7.7); Differential Indicated SCAN CRITERIA MET; Hematocrit 33.7 % (37-47); Hemoglobin 10.2 g/dl (12.0-15.0); Lymphocyte # 0.42 X10^3/ul (4.0); Mean Corp Hgb Conc 30.3 g/gl (32-36); Mean Corpuscular Hgb 25.6 pg (27.0-32.0); Mean Corpuscular Volume 84.5 fL (81-99); Monocyte# 0.42 X10^3/uL; Neutrophil # 9.54 X10^3/uL (2.7-7.7); Neutrophil % 91.8 % (47-70); POSITIVE COUNT NO; POSITIVE DIFFERENTIAL YES; POSITIVE MORPHOLOGY NO; Platelet Count 371 K/mm3 (150-450); RBC Distribution Width CV 15.2 % (11.6-14.6); RBC Distribution Width SD 46.1 fl (35.1-43.9); Red Blood Count 3.99 M/mm3 (4.2-5.4); White Blood Count 10.4 K/mm3 (4.4-11.0)
--- NOTE | 2019-02-12 07:17 | PN.CARD_ITS ---
Subjectve: Patient seen and evaluated. She appears to be breathing better this morning Objective: Vital Signs Temp Pulse Resp BP Pulse Ox 99.0 F 113 H 20 H 126/86 H 97 02/12/19 05:30 02/12/19 05:30 02/12/19 05:30 02/12/19 05:30 02/12/19 05:30 Oxygen Flow Rate (L/min) 2 Oxygen Delivery Method Nasal Cannula Weight: 132 lb 4.438 oz Body Mass Index (BMI) 24.3 Intake and Output for Last 24 Hours 02/10/19 02/11/19 02/12/19 23:59 23:59 23:59 Intake Total 3918 / 3918 4000 / 4000 Output Total 300 / 300 2175 / 2175 450 / 450 Balance 3618 / 3618 1825 / 1825 -450 / -450 General: Awake, Alert, Oriented x 3 HEENT: PERRL, EOMI, Sclera Non Icteric Neck: Supple, Good ROM, No Lymph Node Enlargement Lungs: Diminished Guilherme Bases Cardiovascular: Regular Rhythm, Normal S1, Normal S2, No Murmurs, No Rubs, Positive S3 Vascular: No Carotid Bruits, Normal Femoral Pulses, Normal Radial Pulses, Normal Dorsalis Pedal Pulse, Normal Posterior Tibial Pulses Abdomen: Bowel Sounds Present, Soft, Non Tender, No HSM, No Organomegaly Extremities: No Cyanosis, No Clubbing, No edema Neurological: No Focal Motor or Sensory Deficit Psych/Mental Status: Appropriate 02/11/19 13:00: Magnesium 2.2 02/11/19 13:00: Troponin I 0.202 H 02/11/19 13:00: Iron 19 L, TIBC 352, Iron Saturation 5.4 L, Ferritin 33 02/11/19 13:00: Total Bilirubin 0.30, Direct Bilirubin 0.15 02/11/19 16:24: Troponin I 0.244 H 02/11/19 18:20: Troponin I 0.250 H 02/12/19 05:30: WBC 10.4, RBC 3.99 L, Hgb 10.2 L, Hct 33.7 L, MCV 84.5, MCH 25.6 L, MCHC 30.3 L, RDW 15.2 H, RDW Differential 46.1 H, Plt Count 371, MPV 10.0, Immature Gran % (Auto) 0.200, Neut % (Auto) 91.8 H, Lymph % (Auto) 4.0 L, [place] % (Auto) 4.0, Eos % (Auto) 0.0, Baso % (Auto) 0.0, Absolute Neuts (auto) 9.5 H, Total Counted Not Reportable 02/12/19 05:30: Sodium 136, Potassium 4.3, Chloride 103, Carbon Dioxide 27.0, Anion Gap 6, BUN 21 H, Creatinine 0.60, Est GFR (MDRD) Af Amer 129, Est GFR (MDRD) Non-Af 106, BUN/Creatinine Ratio 35.1 H, Glucose 133 H, Calcium 8.6, Triglycerides 108, Cholesterol 164, LDL Cholesterol 51, VLDL Cholesterol 22, HDL Cholesterol 91 Rhythm: EKG: ECHO: Stress Test: Cardiac Cath: PCI: CT Surgery: Holter monitor: EPS: PPM: CXR: Chest CT Scan: Medical Necessity - Tobacco Use Smoking Status: Former smoker Tobacco Use: Cigarettes Assessment/Plan 1. Shortness of breath-likely congestive heart failure acute systolic Patient presents with shortness of breath and has bilateral rales as well as an S3 and her echocardiogram does corroborate the findings of systolic congestive heart failure with an estimated ejection fraction of approximately 15%. * * Start Lasix 40 mg IV twice daily * Carvedilol 6.25 mg twice a day * If patient tolerates JOSE ANGEL inhibitor would start that in a.m. start lisinopril 2.5 mg daily * Reevaluate the need for antibiotics * Need to consider left heart catheterization prior to discharge. * Further plans will depend on her clinical course. * * Thank you for allowing me to participate in the care of your patient. Please don't hesitate to call if any issues arise
[2019-02-12] MEDS: Ipratropium/Albuterol Sulfate 3 ML AMPUL.NEB INHALATION ×3 (07:23→20:00)
[2019-02-12] MEDS: Aspirin 81 MG TAB.CHEW PO (08:21)
[2019-02-12] MEDS: Fluticasone 0.05% 1 SPRAY NASAL.SRY NASAL ×2 (08:22→20:54)
[2019-02-12] MEDS: Furosemide 40 MG/4 ML Vial IV ×2 (08:22→17:59)
[2019-02-12] MEDS: Carvedilol 6.25 MG Tablet PO (08:29)
[2019-02-12] MEDS: Lisinopril 2.5 MG Tablet PO (10:11)
--- NOTE | 2019-02-12 10:47 | CASEMGMT ---
According to [facility], the following are in-network tertiary facilities: [facility], [place], [facility], [place], [facility], [facility], [place], [facility], and . Nancy TAMAYO CM
--- NOTE | 2019-02-12 14:16 | PCM.PROGNOTE ---
Patient Problems: Active and Suspected Problems Right lower lobe pneumonia (Acute) Sepsis (Acute) Acute respiratory failure (Acute) Subjective: No CP. Mild improvement in SOB. Productive cough today white sputum. No fever/chills. No LE edema. No LH/Dizziness. No Palp. - Physical Exam General: Alert, Oriented x3, Cooperative HEENT: Atraumatic, PERRLA, EOMI, Normocephalic Neck: Supple, No JVD, Negative Carotid Bruits Lungs: Diminished, Rales Cardiovascular: Regular rate, No murmurs, Tachycardic Abdomen: Bowel Sounds Present, Soft, Non Tender Extremities: No edema, Capillary Refill Less than 3 Seconds Skin: No rashes, No breakdown Musculoskeletal: No Tenderness to Palpation of Joints or Extremities Neurological: Cranial nerves II-XII grossly intact Psych/Mental Status: Normal Affect, Appropriate, Alert and oriented to time, place, person, mood and affect Vital Signs Temp Pulse Resp BP Pulse Ox 98.4 F 118 H 20 H 112/68 98 02/12/19 10:16 02/12/19 11:06 02/12/19 11:06 02/12/19 10:16 02/12/19 10:16 Oxygen Flow Rate (L/min) 2 Oxygen Delivery Method Nasal Cannula Weight: 132 lb 4.438 oz Body Mass Index (BMI) 24.3 Intake and Output for Last 24 Hours 02/10/19 02/11/19 02/12/19 23:59 23:59 23:59 Intake Total 3918 / 3918 4000 / 4000 620 / 620 Output Total 300 / 300 2175 / 2175 1800 / 1800 Balance 3618 / 3618 1825 / 1825 -1180 / -1180 Microbiology Past 72 Hours 02/10/19 04:07 Legionella Antigen - Final Urine, Clean Catch 02/10/19 04:07 Streptococcus pneumoniae Antigen (M - Final Urine, Clean Catch Laboratory Tests Past 24 Hrs 02/11/19 02/11/19 02/11/19 13:00 13:00 13:00 WBC RBC Hgb Hct MCV MCH MCHC RDW RDW Differential Plt Count MPV Immature Gran % (Auto) Neut % (Auto) Lymph % (Auto) [place] % (Auto) Eos % (Auto) Baso % (Auto) Absolute Neuts (auto) Absolute Lymphs (auto) Total Counted Sodium Potassium Chloride Carbon Dioxide Anion Gap BUN Creatinine Estim Creat Clear Calc Est GFR (MDRD) Af Amer Est GFR (MDRD) Non-Af BUN/Creatinine Ratio Glucose Calcium Iron 19 L TIBC 352 Iron Saturation 5.4 L Ferritin 33 Total Bilirubin Direct Bilirubin AST ALT Alkaline Phosphatase Troponin I Total Protein Albumin Globulin Triglycerides Cholesterol LDL Cholesterol VLDL Cholesterol HDL Cholesterol Vitamin B12 Folate 16.10 TSH 0.20 L Free T4 1.02 Free T3 pg/dL 02/11/19 02/11/19 02/11/19 13:00 13:00 16:24 WBC RBC Hgb Hct MCV MCH MCHC RDW RDW Differential Plt Count MPV Immature Gran % (Auto) Neut % (Auto) Lymph % (Auto) [place] % (Auto) Eos % (Auto) Baso % (Auto) Absolute Neuts (auto) Absolute Lymphs (auto) Total Counted Sodium Potassium Chloride Carbon Dioxide Anion Gap BUN Creatinine Estim Creat Clear Calc Est GFR (MDRD) Af Amer Est GFR (MDRD) Non-Af BUN/Creatinine Ratio Glucose Calcium Iron TIBC Iron Saturation Ferritin Total Bilirubin 0.30 Direct Bilirubin 0.15 AST 52 H ALT 62 H Alkaline Phosphatase 68 Troponin I 0.244 H Total Protein 6.3 L Albumin 3.2 Globulin 3.1 Triglycerides Cholesterol LDL Cholesterol VLDL Cholesterol HDL Cholesterol Vitamin B12 Folate TSH Free T4 Free T3 pg/dL 2.2 02/11/19 02/11/19 02/12/19 16:24 18:20 05:30 WBC 10.4 RBC 3.99 L Hgb 10.2 L Hct 33.7 L MCV 84.5 MCH 25.6 L MCHC 30.3 L RDW 15.2 H RDW Differential 46.1 H Plt Count 371 MPV 10.0 Immature Gran % (Auto) 0.200 Neut % (Auto) 91.8 H Lymph % (Auto) 4.0 L [place] % (Auto) 4.0 Eos % (Auto) 0.0 Baso % (Auto) 0.0 Absolute Neuts (auto) 9.5 H Absolute Lymphs (auto) 0.42 L Total Counted Not Reportable Sodium Potassium Chloride Carbon Dioxide Anion Gap BUN Creatinine Estim Creat Clear Calc Est GFR (MDRD) Af Amer Est GFR (MDRD) Non-Af BUN/Creatinine Ratio Glucose Calcium Iron TIBC Iron Saturation Ferritin Total Bilirubin Direct Bilirubin AST ALT Alkaline Phosphatase Troponin I 0.250 H Total Protein Albumin Globulin Triglycerides Cholesterol LDL Cholesterol VLDL Cholesterol HDL Cholesterol Vitamin B12 650 Folate TSH Free T4 Free T3 pg/dL 02/12/19 05:30 WBC RBC Hgb Hct MCV MCH MCHC RDW RDW Differential Plt Count MPV Immature Gran % (Auto) Neut % (Auto) Lymph % (Auto) [place] % (Auto) Eos % (Auto) Baso % (Auto) Absolute Neuts (auto) Absolute Lymphs (auto) Total Counted Sodium 136 Potassium 4.3 Chloride 103 Carbon Dioxide 27.0 Anion Gap 6 BUN 21 H Creatinine 0.60 Estim Creat Clear Calc 41.76 Est GFR (MDRD) Af Amer 129 Est GFR (MDRD) Non-Af 106 BUN/Creatinine Ratio 35.1 H Glucose 133 H Calcium 8.6 Iron TIBC Iron Saturation Ferritin Total Bilirubin Direct Bilirubin AST ALT Alkaline Phosphatase Troponin I Total Protein Albumin Globulin Triglycerides 108 Cholesterol 164 LDL Cholesterol 51 VLDL Cholesterol 22 HDL Cholesterol 91 Vitamin B12 Folate TSH Free T4 Free T3 pg/dL Medical Necessity - Tobacco Use Smoking Status: Former smoker Tobacco Use: Cigarettes Assessment/Plan All Active Problems Right lower lobe pneumonia (Acute) Sepsis (Acute) Acute respiratory failure (Acute) 1. Sepsis / Pneumonia ruled out. 2. Acute hypoxic respiratory failure secondary to acute systolic CHF exacerbation, underlying cardiomyopathy of unclear type, along with COPD exacerbation. Lasix IV BID. Trend I/O. CTA showing emphysema. Prednisone taper. 3. Elevated troponin - heart cath when appropriate, when patient can tolerate. Coreg. still tachy. Cardiology following. Therapeutic lovenox. Aspirin. Atorvastatin. Lisinopril. 4. Iron def. anemia - provide venofer x3. Check stool occult blood. Anemia stable. 5. Anxiety and depression DVT prophylaxis: Lovenox This patient was seen by Richar Hughes PA-C under the supervision of Doctor Dennise.
[2019-02-12] MEDS: Carvedilol 12.5 MG Tablet PO (20:45)
[2019-02-12] MEDS: Atorvastatin Calcium 40 MG Tablet PO (20:55)
[2019-02-13] VITALS (25 sets, daily range): BP systolic 88–135; BP diastolic 48–84; PULSE 84–107; RESP 12–18; TEMP 36.4–36.7; O2SAT 82–100
[2019-02-13 00:01] LABS: Mucous, Urine 0 SEEN /hpf (<or=2+); Red Blood Cells-Urine 0 SEEN /hpf (0-5)
[2019-02-13 00:11] LABS: Color, Urine Yellow (Yellow); Glucose, Dipstick Normal (Normal); Ketone-Dipstick Negative (Negative); Leukocyte Esterase-Dipstick 25 /ul (Negative); Nitrite-Dipstick Negative (Negative); Occult Blood-Urine Negative /ul (Negative); Protein-Dipstick Negative (Negative); Urine Bilirubin Dipstick Negative (Negative); Urine Clarity Clear (Clear); Urine Urobilinogen Normal (Normal)
[2019-02-13 00:20] LABS: White Blood Cells 0-5 SEEN /hpf (0-5)
[2019-02-13 00:21] LABS: Bacteria RARE /hpf (None Seen); Squamous Epithelial Cells - UA 0-5 SEEN /hpf (5-10)
[2019-02-13 05:50] LABS: International Normalized Ratio 1.1; Prothrombin Time (Protime)PT. 14.4 SECONDS (11.7-14.9)
[2019-02-13 05:51] LABS: Partial Thromboplast Time 28.7 Seconds (24.1-36.2)
[2019-02-13 05:52] LABS: Absolute Lymphocyte Count 1.48 X10^3/ul (0.83-4.51); Absolute Neutrophil Count 6.8 X10^3/uL (2.0-7.7); Eosinophil# 0.02 X10^3/uL; Eosinophils% 0.2 % (0-5); Hematocrit 33.5 % (37-47); Hemoglobin 10.2 g/dl (12.0-15.0); Lymphocyte # 1.48 X10^3/ul (4.0); Mean Corp Hgb Conc 30.4 g/gl (32-36); Mean Corpuscular Hgb 25.6 pg (27.0-32.0); Mean Corpuscular Volume 84.2 fL (81-99); Mean Platelet Vol. 9.8 fl (6.2-12.0); Monocyte# 0.91 X10^3/uL; Monocyte% 9.8 % (0-10); Neutrophil # 6.83 X10^3/uL (2.7-7.7); Neutrophil % 73.8 % (47-70); Platelet Count 374 K/mm3 (150-450); RBC Distribution Width CV 14.9 % (11.6-14.6); RBC Distribution Width SD 44.8 fl (35.1-43.9); Red Blood Count 3.98 M/mm3 (4.2-5.4); White Blood Count 9.3 K/mm3 (4.4-11.0)
[2019-02-13 05:53] LABS: POSITIVE COUNT NO; POSITIVE DIFFERENTIAL NO; POSITIVE MORPHOLOGY NO
[2019-02-13] MEDS: Aspirin 81 MG TAB.CHEW PO (06:04)
[2019-02-13] MEDS: Carvedilol 12.5 MG Tablet PO (06:04)
[2019-02-13] MEDS: Lisinopril 2.5 MG Tablet PO (06:05)
[2019-02-13 06:18] LABS: Anion Gap 7 (5-15); BUN 30 mg/dL (7-18); BUN/Creat Ratio 42.8 RATIO (10-20); Calcium,Total 8.2 mg/dL (8.5-10.1); Chloride 103 mmol/L (98-107); EST Glomerular Filtration Rate 89 mL/min (>60); Est Glom Filt Rate - Afr Amer 107 mL/min (>60); Estimated Creatinine Clearance 41.76 ml/min; Glucose 86 mg/dL (74-106); Potassium 3.4 mmol/L (3.5-5.1); Sodium Level 141 mmol/L (136-145)
[2019-02-13] MEDS: Fluticasone 0.05% 1 SPRAY NASAL.SRY NASAL (07:51)
--- NOTE | 2019-02-13 10:14 | PCM.PROGNOTE ---
Patient Problems: Active and Suspected Problems Right lower lobe pneumonia (Acute) Sepsis (Acute) Acute respiratory failure (Acute) Subjective: Good bladder emptying with frequent urination since starting lasix. SOB with exertion improving. Still requiring O2, but able to get to bathroom without getting SOB. She remains anxious. She continues to have chest tightness, today midsternal. No LE edema. No fever/chills. Nonproductive cough today. She is more wheezy today. - Physical Exam General: Alert, Oriented x3, Cooperative HEENT: Atraumatic, PERRLA, EOMI, Normocephalic Neck: Supple, No JVD, Negative Carotid Bruits Lungs: Diminished, Rales, Wheezes Cardiovascular: Regular rate, No murmurs Abdomen: Bowel Sounds Present, Soft, Non Tender Extremities: No edema, Capillary Refill Less than 3 Seconds Skin: No rashes, No breakdown Musculoskeletal: No Tenderness to Palpation of Joints or Extremities Neurological: Cranial nerves II-XII grossly intact Psych/Mental Status: Appropriate, Anxious, Alert and oriented to time, place, person, mood and affect Vital Signs Temp Pulse Resp BP Pulse Ox 97.9 F 89 18 88/48 L 95 02/13/19 07:53 02/13/19 08:56 02/13/19 08:56 02/13/19 07:53 02/13/19 08:56 Oxygen Flow Rate (L/min) 2 Oxygen Delivery Method Nasal Cannula Weight: 132 lb 4.438 oz Body Mass Index (BMI) 24.3 Intake and Output for Last 24 Hours 02/11/19 02/12/19 02/13/19 23:59 23:59 23:59 Intake Total 4000 / 4000 1020 / 1020 Output Total 2175 / 2175 4450 / 4450 Balance 1825 / 1825 -3430 / -3430 Microbiology Past 72 Hours 02/12/19 10:50 Respiratory Culture - Preliminary Sputum, Expectorated/Coughed Yeast Laboratory Tests Past 24 Hrs 02/12/19 02/12/19 02/13/19 05:30 22:40 05:35 WBC 9.3 RBC 3.98 L Hgb 10.2 L Hct 33.5 L MCV 84.2 MCH 25.6 L MCHC 30.4 L RDW 14.9 H RDW Differential 44.8 H Plt Count 374 MPV 9.8 Immature Gran % (Auto) 0.200 Neut % (Auto) 73.8 H Lymph % (Auto) 16.0 L [place] % (Auto) 9.8 Eos % (Auto) 0.2 Baso % (Auto) 0.0 Absolute Neuts (auto) 6.8 Absolute Lymphs (auto) 1.48 Total Counted Not Reportable PT INR APTT Sodium Potassium Chloride Carbon Dioxide Anion Gap BUN Creatinine Estim Creat Clear Calc Est GFR (MDRD) Af Amer Est GFR (MDRD) Non-Af BUN/Creatinine Ratio Glucose Calcium B-Natriuretic Peptide 1806.0 H Urine Color Yellow Urine Clarity Clear Urine pH 7.0 Ur Specific [place] 1.010 Urine Protein Negative Urine Glucose (UA) Normal Urine Ketones Negative Urine Occult Blood Negative Urine Nitrite Negative Urine Bilirubin Negative Urine Urobilinogen Normal Ur Leukocyte Esterase 25 H Urine RBC 0 SEEN Urine WBC 0-5 SEEN Ur Squamous Epith Cells 0-5 SEEN Urine Bacteria RARE Urine Mucus 0 SEEN 02/13/19 02/13/19 05:35 05:35 WBC RBC Hgb Hct MCV MCH MCHC RDW RDW Differential Plt Count MPV Immature Gran % (Auto) Neut % (Auto) Lymph % (Auto) [place] % (Auto) Eos % (Auto) Baso % (Auto) Absolute Neuts (auto) Absolute Lymphs (auto) Total Counted PT 14.4 INR 1.1 APTT 28.7 Sodium 141 Potassium 3.4 L Chloride 103 Carbon Dioxide 31.0 Anion Gap 7 BUN 30 H Creatinine 0.70 Estim Creat Clear Calc 41.76 Est GFR (MDRD) Af Amer 107 Est GFR (MDRD) Non-Af 89 BUN/Creatinine Ratio 42.8 H Glucose 86 Calcium 8.2 L B-Natriuretic Peptide Urine Color Urine Clarity Urine pH Ur Specific [place] Urine Protein Urine Glucose (UA) Urine Ketones Urine Occult Blood Urine Nitrite Urine Bilirubin Urine Urobilinogen Ur Leukocyte Esterase Urine RBC Urine WBC Ur Squamous Epith Cells Urine Bacteria Urine Mucus Medical Necessity - Tobacco Use Smoking Status: Former smoker Tobacco Use: Cigarettes Assessment/Plan All Active Problems Right lower lobe pneumonia (Acute) Sepsis (Acute) Acute respiratory failure (Acute) 1. Sepsis / Pneumonia ruled out. 2. Acute hypoxic respiratory failure secondary to acute systolic CHF exacerbation, underlying cardiomyopathy of unclear type, along with COPD exacerbation. Lasix IV BID. Trend I/O. CTA showing emphysema. Prednisone taper. Duoneb prior to cath, increased wheezing today. 3. Elevated troponin - heart cath today. Coreg, tachy now resolved. BP borderline low. Cardiology following. Therapeutic lovenox. Aspirin. Atorvastatin. Lisinopril. 4. Iron def. anemia - provide venofer x3. Check stool occult blood. Anemia stable. 5. Anxiety and depression DVT prophylaxis: Lovenox This patient was seen by Richar Hughes PA-C under the supervision of Doctor Dennise.
[2019-02-13] MEDS: Ipratropium/Albuterol Sulfate 3 ML AMPUL.NEB INHALATION (10:44)
[2019-02-13] MEDS: Sodium Chloride 0.65% 1 SPRAY SPRAY.BTL 2 SPRAY NASAL (11:01)
--- NOTE | 2019-02-13 11:56 | NURSING ---
Pt up to [facility] and being transported to photographic laboratory supervisor for procedure, report called to Tawanda TAMAYO in photographic laboratory supervisor.
--- NOTE | 2019-02-13 12:10 | PCM.CONS.PUL ---
Reason for Consult Date of Consultation: 02/13/19 Reason for Consultation: History of COPD, needs follow-up History of Present Illness: The patient is a 68-year-old female, with a history as outlined below, who initially presented to the emergency department on February 09 with complaints of shortness of breath. The patient has a self-reported history of COPD of unknown severity. She reports having had pulmonary function studies completed previously through the [facility] a multitude of years ago. For short period of time, she was prescribed Symbicort, but was told by the prescribing provider to eventually wean herself off. She does not recall ever having been evaluated by a healthcare sales representative previously. The patient does have a prior smoking history of approximately 10 pack years. She is not currently oxygen dependent at her baseline. She does not currently utilize any inhalers. On presentation to the emergency department, the patient was noted to be afebrile, tachycardic and tachypneic. She did have to be placed on BiPAP while in the emergency department. Initial laboratory evaluation revealed no evidence of a leukocytosis. Chemistry profile was largely unrevealing. Troponin was elevated to 0.082. Plain film chest x-ray revealed evidence of a right lower lobe infiltrate. The patient was given IV Solu-Medrol and provided with aerosol treatments in the emergency department. In addition, she was placed on antimicrobial coverage. The patient's hospital course has been complicated by newly discovered congestive heart failure. A CTA chest obtained on February 11 revealed no evidence for pulmonary embolism. There was evidence of upper lobe predominant emphysematous changes and small bilateral pleural effusions. Surface echocardiogram revealed normal LV size with an ejection fraction of 15%. There was severe global hypokinesis of the LV. Pulmonary artery systolic pressure was estimated to be 60 mmHg. Cardiology was consulted to assist with medical management. Given the findings noted on CT chest, antimicrobial therapy was discontinued. Past Medical History Past Medical History (Chronic Problems): Chronic Problems COPD exacerbation (Chronic) Allergies No Known Allergies Allergy (Verified 02/09/19 10:48) Home Medications: Ambulatory Orders Medication Instructions Recorded Aspirin [Aspirin, Baby] 81 mg PO DAILY@0800 02/09/19 Multivitamin with Minerals 1 each PO DAILY 02/09/19 [Multiple Vitamin] Vitamin B Complex [B Complex] 1 each PO DAILY 02/09/19 Surgical History: no surgical history Smoking Status: Former smoker Tobacco Use: Cigarettes Alcohol: None Drugs: None - *Family History Maternal History Items: COPD, Heart Disease Paternal History Items: Heart Disease Review of Systems Constitutional: Denies: Chills, Fever Eyes: Denies: Blurred vision, Double vision HEENT: Denies: Head Aches, Sinus Congestion, Sinus Drainage Cardiovascular: Reports: Chest Pressure Respiratory: Reports: Cough, Shortness of Breath, Sputum production Gastrointestinal: Denies: Abdominal Pain, Nausea, Vomiting Genitourinary: Denies: Dysuria Musculoskeletal: Denies: Joint Pain, Joint Tenderness Skin: Denies: Rash, Wounds Neurological: Denies: Numbness, Tingling, Focal weakness Psychiatric: Denies: Anxiety, Depression, Homicidal Ideations, Suicidal Ideations Hematologic/ Lymphatic: Reports: Anemia Patient Problems: Active and Suspected Problems Right lower lobe pneumonia (Acute) Sepsis (Acute) Acute respiratory failure (Acute) Objective: The patient's most recent lab work, culture data and imaging studies have all been personally reviewed. - Physical Exam General: Alert, Oriented x3, Cooperative, No apparent distress HEENT: Atraumatic, PERRLA, Normocephalic Oral: No Gingival or Mucosal Lesions/ Ulcerations Neck: Supple, No Nodes, Trachea Midline Lungs: No rhonchi, No wheeze, No rales, Diminished Cardiovascular: Normal S1, Normal S2, No murmurs, Tachycardic Abdomen: Bowel Sounds Present, Soft, Non Tender Extremities: No clubbing, No cyanosis, No edema Skin: No breakdown Musculoskeletal: No Tenderness to Palpation of Joints or Extremities Lymphatic: No Cervical, Supraclavicular, or Inguinal Adenopathy Neurological: Cranial nerves II-XII grossly intact, Neuro grossly intact Psych/Mental Status: Normal Affect, Appropriate Vital Signs Temp Pulse Resp BP Pulse Ox 97.5 F L 98 18 107/73 97 02/13/19 09:55 02/13/19 10:44 02/13/19 10:44 02/13/19 09:55 02/13/19 10:44 Oxygen Flow Rate (L/min) 2 Oxygen Delivery Method Nasal Cannula Weight: 132 lb 4.438 oz Body Mass Index (BMI) 24.3 Intake and Output for Last 24 Hours 02/11/19 02/12/19 02/13/19 23:59 23:59 23:59 Intake Total 4000 / 4000 1020 / 1020 Output Total 2175 / 2175 4450 / 4450 Balance 1825 / 1825 -3430 / -3430 Microbiology Past 72 Hours 02/12/19 10:50 Gram Stain - Final Sputum, Expectorated/Coughed Respiratory Culture - Preliminary Yeast Laboratory Tests Past 24 Hrs 02/12/19 02/12/19 02/13/19 05:30 22:40 05:35 WBC 9.3 RBC 3.98 L Hgb 10.2 L Hct 33.5 L MCV 84.2 MCH 25.6 L MCHC 30.4 L RDW 14.9 H RDW Differential 44.8 H Plt Count 374 MPV 9.8 Immature Gran % (Auto) 0.200 Neut % (Auto) 73.8 H Lymph % (Auto) 16.0 L [place] % (Auto) 9.8 Eos % (Auto) 0.2 Baso % (Auto) 0.0 Absolute Neuts (auto) 6.8 Absolute Lymphs (auto) 1.48 Total Counted Not Reportable PT INR APTT Sodium Potassium Chloride Carbon Dioxide Anion Gap BUN Creatinine Estim Creat Clear Calc Est GFR (MDRD) Af Amer Est GFR (MDRD) Non-Af BUN/Creatinine Ratio Glucose Calcium B-Natriuretic Peptide 1806.0 H Urine Color Yellow Urine Clarity Clear Urine pH 7.0 Ur Specific [place] 1.010 Urine Protein Negative Urine Glucose (UA) Normal Urine Ketones Negative Urine Occult Blood Negative Urine Nitrite Negative Urine Bilirubin Negative Urine Urobilinogen Normal Ur Leukocyte Esterase 25 H Urine RBC 0 SEEN Urine WBC 0-5 SEEN Ur Squamous Epith Cells 0-5 SEEN Urine Bacteria RARE Urine Mucus 0 SEEN 02/13/19 02/13/19 05:35 05:35 WBC RBC Hgb Hct MCV MCH MCHC RDW RDW Differential Plt Count MPV Immature Gran % (Auto) Neut % (Auto) Lymph % (Auto) [place] % (Auto) Eos % (Auto) Baso % (Auto) Absolute Neuts (auto) Absolute Lymphs (auto) Total Counted PT 14.4 INR 1.1 APTT 28.7 Sodium 141 Potassium 3.4 L Chloride 103 Carbon Dioxide 31.0 Anion Gap 7 BUN 30 H Creatinine 0.70 Estim Creat Clear Calc 41.76 Est GFR (MDRD) Af Amer 107 Est GFR (MDRD) Non-Af 89 BUN/Creatinine Ratio 42.8 H Glucose 86 Calcium 8.2 L B-Natriuretic Peptide Urine Color Urine Clarity Urine pH Ur Specific [place] Urine Protein Urine Glucose (UA) Urine Ketones Urine Occult Blood Urine Nitrite Urine Bilirubin Urine Urobilinogen Ur Leukocyte Esterase Urine RBC Urine WBC Ur Squamous Epith Cells Urine Bacteria Urine Mucus Clinical Impression(s) from Imaging Studies Chest X-Ray 02/09/19 11:01 IMPRESSION: 1. Right lower lobe infiltrate could represent pneumonia. 2. Chronic obstructive airway disease. 3. Cardiomegaly. Electronically Signed: Alireza Gerber MD at 11:47 EDT , Service support , Chest CTA 02/11/19 15:10 IMPRESSION: Normal CTA chest examination, without a demonstrated pulmonary embolism or arterial dissection. There are calcified plaques of the thoracic aorta. Cardiomegaly is present. There are emphysematous changes of the lungs predominantly involving the upper lobes. There is right lower lobe atelectasis. There are small bilateral pleural effusions, right side larger than left. Electronically Signed: Kelvin Tena MD at 16:48 EDT , Service support , Assessment/Plan All Active Problems Right lower lobe pneumonia (Acute) Sepsis (Acute) Acute respiratory failure (Acute) RECOMMENDATIONS: 1. Continue scheduled bronchodilators. 2. Wean supplemental oxygen to maintain saturations at or above 90%. 3. Encourage incentive spirometer use and mobilize patient as tolerated. 4. Continue current supportive measures, including medical therapy dictated by cardiology. 5. Perform walking oximetry study prior to consideration for discharge from the hospital. 6. The patient should follow-up in the pulmonary medicine clinic within 2 weeks of discharge. Repeat pulmonary function studies can be obtained at that time. IMPRESSIONS: 1. Acute hypoxemic respiratory insufficiency secondary to decompensated heart failure The patient has newly identified systolic heart failure with cardiology following to assist with medical management. There are plans for the patient to undergo cardiac catheterization today. Continue current supportive measures including diuretic therapy. Wean supplemental oxygen to maintain saturations at or above 90%. 2. Self-reported COPD of unknown severity/history of tobacco dependency, now in remission The patient does report having had pulmonary function tests completed previously through the [facility]. She was for a period of time prescribed Symbicort, but was told to wean herself off of it by the prescribing provider. She did report subjective improvement in her breathing quality with the use of the aforementioned medication. I did explain to the patient that pending further cardiac work-up and evaluation, that she would be able to follow-up in the pulmonary medicine clinic after discharge. At that time, I would recommend that repeat pulmonary function studies be obtained. Once the patient's cardiac issues have been optimized, we can work to put her on a new inhaler regimen, if clinically indicated. For now, it is reasonable to continue scheduled bronchodilators. This note was generated with [employer] dictation software. It may contain incorrect words, spelling, and punctuation that were not noted in checking the note before signing. Code Visit Inpatient E&M: 19227 Init Hosp L2
--- NOTE | 2019-02-13 12:17 | CON.PCM_ITS ---
Reason for Consult Date of Consultation: 02/13/19 Reason for Consultation: History of COPD, needs follow-up History of Present Illness: The patient is a 68-year-old female, with a history as outlined below, who initially presented to the emergency department on February 09 with complaints of shortness of breath. The patient has a self-reported history of COPD of unknown severity. She reports having had pulmonary function studies completed previously through the [facility] a multitude of years ago. For short period of time, she was prescribed Symbicort, but was told by the prescribing provider to eventually wean herself off. She does not recall ever having been evaluated by a boot repairer previously. The patient does have a prior smoking history of approximately 10 pack years. She is not currently oxygen dependent at her baseline. She does not currently utilize any inhalers. On presentation to the emergency department, the patient was noted to be afebrile, tachycardic and tachypneic. She did have to be placed on BiPAP while in the emergency department. Initial laboratory evaluation revealed no evidence of a leukocytosis. Chemistry profile was largely unrevealing. Troponin was elevated to 0.082. Plain film chest x-ray revealed evidence of a right lower lobe infiltrate. The patient was given IV Solu-Medrol and provided with aerosol treatments in the emergency department. In addition, she was placed on antimicrobial coverage. The patient's hospital course has been complicated by newly discovered congestive heart failure. A CTA chest obtained on February 11 revealed no evidence for pulmonary embolism. There was evidence of upper lobe predominant emphysematous changes and small bilateral pleural effusions. Surface echocardiogram revealed normal LV size with an ejection fraction of 15%. There was severe global hypokinesis of the LV. Pulmonary artery systolic pressure was estimated to be 60 mmHg. Cardiology was consulted to assist with medical management. Given the findings noted on CT chest, antimicrobial therapy was discontinued. Past Medical History Past Medical History (Chronic Problems): Chronic Problems COPD exacerbation (Chronic) Allergies No Known Allergies Allergy (Verified 02/09/19 10:48) Home Medications: Ambulatory Orders Medication Instructions Recorded Aspirin [Aspirin, Baby] 81 mg PO DAILY@0800 02/09/19 Multivitamin with Minerals 1 each PO DAILY 02/09/19 [Multiple Vitamin] Vitamin B Complex [B Complex] 1 each PO DAILY 02/09/19 Surgical History: no surgical history Smoking Status: Former smoker Tobacco Use: Cigarettes Alcohol: None Drugs: None - *Family History Maternal History Items: COPD, Heart Disease Paternal History Items: Heart Disease Review of Systems Constitutional: Denies: Chills, Fever Eyes: Denies: Blurred vision, Double vision HEENT: Denies: Head Aches, Sinus Congestion, Sinus Drainage Cardiovascular: Reports: Chest Pressure Respiratory: Reports: Cough, Shortness of Breath, Sputum production Gastrointestinal: Denies: Abdominal Pain, Nausea, Vomiting Genitourinary: Denies: Dysuria Musculoskeletal: Denies: Joint Pain, Joint Tenderness Skin: Denies: Rash, Wounds Neurological: Denies: Numbness, Tingling, Focal weakness Psychiatric: Denies: Anxiety, Depression, Homicidal Ideations, Suicidal Ideations Hematologic/ Lymphatic: Reports: Anemia Patient Problems: Active and Suspected Problems Right lower lobe pneumonia (Acute) Sepsis (Acute) Acute respiratory failure (Acute) Objective: The patient's most recent lab work, culture data and imaging studies have all been personally reviewed. - Physical Exam General: Alert, Oriented x3, Cooperative, No apparent distress HEENT: Atraumatic, PERRLA, Normocephalic Oral: No Gingival or Mucosal Lesions/ Ulcerations Neck: Supple, No Nodes, Trachea Midline Lungs: No rhonchi, No wheeze, No rales, Diminished Cardiovascular: Normal S1, Normal S2, No murmurs, Tachycardic Abdomen: Bowel Sounds Present, Soft, Non Tender Extremities: No clubbing, No cyanosis, No edema Skin: No breakdown Musculoskeletal: No Tenderness to Palpation of Joints or Extremities Lymphatic: No Cervical, Supraclavicular, or Inguinal Adenopathy Neurological: Cranial nerves II-XII grossly intact, Neuro grossly intact Psych/Mental Status: Normal Affect, Appropriate Vital Signs Temp Pulse Resp BP Pulse Ox 97.5 F L 98 18 107/73 97 02/13/19 09:55 02/13/19 10:44 02/13/19 10:44 02/13/19 09:55 02/13/19 10:44 Oxygen Flow Rate (L/min) 2 Oxygen Delivery Method Nasal Cannula Weight: 132 lb 4.438 oz Body Mass Index (BMI) 24.3 Intake and Output for Last 24 Hours 02/11/19 02/12/19 02/13/19 23:59 23:59 23:59 Intake Total 4000 / 4000 1020 / 1020 Output Total 2175 / 2175 4450 / 4450 Balance 1825 / 1825 -3430 / -3430 Microbiology Past 72 Hours 02/12/19 10:50 Gram Stain - Final Sputum, Expectorated/Coughed Respiratory Culture - Preliminary Yeast Laboratory Tests Past 24 Hrs 02/12/19 02/12/19 02/13/19 05:30 22:40 05:35 WBC 9.3 RBC 3.98 L Hgb 10.2 L Hct 33.5 L MCV 84.2 MCH 25.6 L MCHC 30.4 L RDW 14.9 H RDW Differential 44.8 H Plt Count 374 MPV 9.8 Immature Gran % (Auto) 0.200 Neut % (Auto) 73.8 H Lymph % (Auto) 16.0 L [place] % (Auto) 9.8 Eos % (Auto) 0.2 Baso % (Auto) 0.0 Absolute Neuts (auto) 6.8 Absolute Lymphs (auto) 1.48 Total Counted Not Reportable PT INR APTT Sodium Potassium Chloride Carbon Dioxide Anion Gap BUN Creatinine Estim Creat Clear Calc Est GFR (MDRD) Af Amer Est GFR (MDRD) Non-Af BUN/Creatinine Ratio Glucose Calcium B-Natriuretic Peptide 1806.0 H Urine Color Yellow Urine Clarity Clear Urine pH 7.0 Ur Specific [place] 1.010 Urine Protein Negative Urine Glucose (UA) Normal Urine Ketones Negative Urine Occult Blood Negative Urine Nitrite Negative Urine Bilirubin Negative Urine Urobilinogen Normal Ur Leukocyte Esterase 25 H Urine RBC 0 SEEN Urine WBC 0-5 SEEN Ur Squamous Epith Cells 0-5 SEEN Urine Bacteria RARE Urine Mucus 0 SEEN 02/13/19 02/13/19 05:35 05:35 WBC RBC Hgb Hct MCV MCH MCHC RDW RDW Differential Plt Count MPV Immature Gran % (Auto) Neut % (Auto) Lymph % (Auto) [place] % (Auto) Eos % (Auto) Baso % (Auto) Absolute Neuts (auto) Absolute Lymphs (auto) Total Counted PT 14.4 INR 1.1 APTT 28.7 Sodium 141 Potassium 3.4 L Chloride 103 Carbon Dioxide 31.0 Anion Gap 7 BUN 30 H Creatinine 0.70 Estim Creat Clear Calc 41.76 Est GFR (MDRD) Af Amer 107 Est GFR (MDRD) Non-Af 89 BUN/Creatinine Ratio 42.8 H Glucose 86 Calcium 8.2 L B-Natriuretic Peptide Urine Color Urine Clarity Urine pH Ur Specific [place] Urine Protein Urine Glucose (UA) Urine Ketones Urine Occult Blood Urine Nitrite Urine Bilirubin Urine Urobilinogen Ur Leukocyte Esterase Urine RBC Urine WBC Ur Squamous Epith Cells Urine Bacteria Urine Mucus Clinical Impression(s) from Imaging Studies Chest X-Ray 02/09/19 11:01 IMPRESSION: 1. Right lower lobe infiltrate could represent pneumonia. 2. Chronic obstructive airway disease. 3. Cardiomegaly. Electronically Signed: Alireza Gerber MD at 11:47 EDT , Service support , Chest CTA 02/11/19 15:10 IMPRESSION: Normal CTA chest examination, without a demonstrated pulmonary embolism or arterial dissection. There are calcified plaques of the thoracic aorta. Cardiomegaly is present. There are emphysematous changes of the lungs predominantly involving the upper lobes. There is right lower lobe atelectasis. There are small bilateral pleural effusions, right side larger than left. Electronically Signed: Kelvin Tena MD at 16:48 EDT , Service support , Assessment/Plan All Active Problems Right lower lobe pneumonia (Acute) Sepsis (Acute) Acute respiratory failure (Acute) RECOMMENDATIONS: 1. Continue scheduled bronchodilators. 2. Wean supplemental oxygen to maintain saturations at or above 90%. 3. Encourage incentive spirometer use and mobilize patient as tolerated. 4. Continue current supportive measures, including medical therapy dictated by cardiology. 5. Perform walking oximetry study prior to consideration for discharge from the hospital. 6. The patient should follow-up in the pulmonary medicine clinic within 2 weeks of discharge. Repeat pulmonary function studies can be obtained at that time. IMPRESSIONS: 1. Acute hypoxemic respiratory insufficiency secondary to decompensated heart failure The patient has newly identified systolic heart failure with cardiology foll owing to assist with medical management. There are plans for the patient to undergo cardiac catheterization today. Continue current supportive measures including diuretic therapy. Wean supplemental oxygen to maintain saturations at or above 90%. 2. Self-reported COPD of unknown severity/history of tobacco dependency, now in remission The patient does report having had pulmonary function tests completed previously through the [facility]. She was for a period of time prescribed Symbicort, but was told to wean herself off of it by the prescribing provider. She did report subjective improvement in her breathing quality with the use of the aforementioned medication. I did explain to the patient that pending further cardiac work-up and evaluation, that she would be able to follow-up in the pulmonary medicine clinic after discharge. At that time, I would recommend that repeat pulmonary function studies be obtained. Once the patient's cardiac issues have been optimized, we can work to put her on a new inhaler regimen, if clinically indicated. For now, it is reasonable to continue scheduled bronchodilators. This note was generated with [employer] dictation software. It may contain incorrect words, spelling, and punctuation that were not noted in checking the note before signing. Code Visit Inpatient E&M: 47398 Init Hosp L2
--- NOTE | 2019-02-13 12:40 | CL.D_ITS ---
Patient Name: CHARO OSBORNE Study Date: 02/13/2019 Performing: Jay Jackson MD Ht: 61.81 inches 157 cm : 1950 Wt: 132.28 lbs 60 kg Age: 68 Gender: female BSA: 1.6 PROCEDURE(S) PERFORMED [id number]/COR/LV CLINICAL PROFILE AND INDICATIONS Indications: Cardiomyopathy Heart Failure: NYHA Class: 3, Newly Diagnosed: Yes, Heart Failure Type: Systolic Stress/Imaging Stress/Image Study Performed: No CAD Presentations: Other: Heart failure CONCLUSIONS Normal coronary arteries Global LV systolic dysfunction- Severe RECOMMENDATIONS Medical therapy DESCRIPTION OF PROCEDURE The patient arrived to the procedure lab. The risks and benefits of the procedure as well as a full d escription of our services here and current unavailability of surgical backup were fully explained to the patient and/or their significant other prior to the catheterization. The Timeout was completed, verifying the correct patient and procedure. The patient's procedural site was prepped and draped in the usual fashion. Local anesthetic was given subcutaneously to right radial region with Lidocaine 2% . Using a modified Seldinger technique, arterial access was obtained via the right radial artery, a 6 Fr sheath was inserted. Left Coronary Artery selective angiography was performed in multiple views u sing a 5 Fr. 4.0 [place] catheter. Right Coronary Artery selective angiography was then performed in mu ltiple views using a 5 Fr. 4.0 [place] catheter. Left Ventriculography was performed in TRUJILLO projection using a 5 Fr. Pigtail catheter. LV to AO pullback pressures were then recorded.The arterial sheath was pulled and a TR Band was applied for hemostasis CORONARY ANGIOGRAPHY DOMINANCE: Right Dominant LEFT HEART ASSESSMENT Left Ventricular Ejection Fraction: by LV Gram 15 % Global Hypokinesis - Severe Depressed Left Ventricular systolic function LEFT MAIN: Angiographically normal, Angiographically normal LEFT ANTERIOR DESCENDING ARTERY: Angiographically normal CIRCUMFLEX ARTERY: Angiographically normal RIGHT CORONARY ARTERY: Angiographically normal COMPLICATIONS No Complications PROCEDURE MEDICATIONS Versed 1 mg IV Fentanyl 25 mcg IV Oxygen: 2 L/min via nasal cannula Heparin diluted in 23cc Heparinized saline. Patient given 4cc IA of this solution. 02/13/2019 12:23:2 1 Verapamil 2.5mg, Ntg 100mcgs, 2000 units of Heparin diluted in 23cc Heparinized saline. Patient give n 4cc IA of this solution. 02/13/2019 12:23:21 SUMMARY OF HEMODYNAMIC DATA Time AIR REST ECG 12:06:04 AO 114/53 (75) SA 12:24:11 LV 118/0, 13 12:30:32 LV 108/0, 15 12:30:38 LV 111/2, 19 12:31:47 LVp 110/3, 24 12:31:52 AOp 116/55 (78) 12:31:57 Signed By Jay Jackson MD On 02/13/2019 12:39:20 PM Jay Jackson MD
--- NOTE | 2019-02-13 12:43 | PCM.PN.CARD ---
Subjectve: Patient seen and evaluated. Underwent heart catheterization today. Objective: Vital Signs Temp Pulse Resp BP Pulse Ox 97.5 F L 98 18 107/73 97 02/13/19 09:55 02/13/19 10:44 02/13/19 10:44 02/13/19 09:55 02/13/19 10:44 Oxygen Flow Rate (L/min) 2 Oxygen Delivery Method Nasal Cannula Weight: 132 lb 4.438 oz Body Mass Index (BMI) 24.3 Intake and Output for Last 24 Hours 02/11/19 02/12/19 02/13/19 23:59 23:59 23:59 Intake Total 4000 / 4000 1020 / 1020 Output Total 2175 / 2175 4450 / 4450 Balance 1825 / 1825 -3430 / -3430 General: Awake, Alert, Oriented x 3 HEENT: PERRL, EOMI, Sclera Non Icteric Neck: Supple, Good ROM, No Lymph Node Enlargement Lungs: Clear to auscultation Cardiovascular: Regular Rhythm, Normal S1, Normal S2, No Murmurs, No Rubs, No Gallops Vascular: No Carotid Bruits, Normal Femoral Pulses, Normal Radial Pulses, Normal Dorsalis Pedal Pulse, Normal Posterior Tibial Pulses Abdomen: Bowel Sounds Present, Soft, Non Tender, No HSM, No Organomegaly Extremities: No Cyanosis, No Clubbing, No edema Neurological: No Focal Motor or Sensory Deficit Psych/Mental Status: Appropriate 02/12/19 05:30: B-Natriuretic Peptide 1806.0 H 02/12/19 22:40: Urine Color Yellow, Urine Clarity Clear, Urine pH 7.0, Ur Specific [place] 1.010, Urine Protein Negative, Urine Glucose (UA) Normal, Urine Ketones Negative, Urine Occult Blood Negative, Urine Nitrite Negative, Urine Bilirubin Negative, Urine Urobilinogen Normal, Ur Leukocyte Esterase 25 H, Urine RBC 0 SEEN, Urine WBC 0-5 SEEN 02/13/19 05:35: WBC 9.3, RBC 3.98 L, Hgb 10.2 L, Hct 33.5 L, MCV 84.2, MCH 25.6 L, MCHC 30.4 L, RDW 14.9 H, RDW Differential 44.8 H, Plt Count 374, MPV 9.8, Immature Gran % (Auto) 0.200, Neut % (Auto) 73.8 H, Lymph % (Auto) 16.0 L, [place] % (Auto) 9.8, Eos % (Auto) 0.2, Baso % (Auto) 0.0, Absolute Neuts (auto) 6.8, Total Counted Not Reportable 02/13/19 05:35: Sodium 141, Potassium 3.4 L, Chloride 103, Carbon Dioxide 31.0, Anion Gap 7, BUN 30 H, Creatinine 0.70, Est GFR (MDRD) Af Amer 107, Est GFR (MDRD) Non-Af 89, BUN/Creatinine Ratio 42.8 H, Glucose 86, Calcium 8.2 L 02/13/19 05:35: PT 14.4, INR 1.1, APTT 28.7 Rhythm: EKG: ECHO: Stress Test: Cardiac Cath: PCI: CT Surgery: Holter monitor: EPS: PPM: CXR: Chest CT Scan: Medical Necessity - Tobacco Use Smoking Status: Former smoker Tobacco Use: Cigarettes Assessment/Plan 1. Shortness of breath-likely congestive heart failure acute systolic Patient presents with shortness of breath and has bilateral rales as well as an S3 and her echocardiogram does corroborate the findings of systolic congestive heart failure with an estimated ejection fraction of approximately 15%. Cardiac catheterization today demonstrated essentially normal coronary arteries. Left ventriculogram demonstrated ejection fraction of 15%. Plan is to continue beta-jaime, JOSE ANGEL inhibitor, Lasix 40 mg twice a day. The patient will be later on titrated to Entresto and spironolactone as an outpatient. Follow-up with me in the office in 2 to 4 weeks. CHF teaching instituted. Thank you for allowing me to participate in the care of your patient. Please don't hesitate to call if any issues arise
--- NOTE | 2019-02-13 12:56 | PCM.DC ---
- Discharge Diagnoses Current Active Problems: Current Active and Chronic Problems (1) Acute Systolic CHF Exacerbation with normal coronary arteries and Severe reduced global LV systolic dysfunction (EF 15%) (2) Acute on suspected Chronic COPD Exacerbation, RULED OUT Acute Severe Sepsis and RLL CAP (3) Abnormal TSH (4) Chronic normocytic anemia, Fe Deficiency Anemia (5) Former Tobacco Use: [place] You will use the following diet at home:: Cardiac Your food should be the consistency of: Regular Your liquids should be the consistency of: Regular/Thin Discharge Activity: - - Activity limitations per Cardiology direction. Weight Bearing Status: Weight bearing as tolerated Call your doctor if your incision/area has: Continuous Slow Oozing, Sudden Increased Bleeding, Increased Pain/ Swelling, Increased Redness, Foul Smelling Discharge, Swelling at the incision site Call your doctor if you observe: Fever of 101 or Higher, Inability to urinate, Inability to have a bowel movement, Shortness of breath, Dizziness, Fainting spells, Chest pain, Uncontrolled pain Instructions: Taking Medication to Control Heart Failure, What Is Heart Failure?, Heart Failure: Warning Signs of a Flare-Up, Heart Failure: Tracking Your Weight, Heart Failure: Being Active, Taking Medications for Your Heart, Common Heart Medications, Discharge Instructions for Cardiomyopathy, What is COPD?, Pulmonary Function Tests, Using Oxygen Safely, Traveling with Oxygen Additional Instructions: (1) Abnormal TSH level: During the admission your thyroid function studies were abnormal with noted TSH 0.20, free T4 1.02 with free T3 2.2, consistent with subclinical presentation. We recommend repeat outpatient testing 6-8 weeks. (2) ? COPD: You will have repeat pulmonary function tesing at follow-up with Pulmonary medicine. You will be started on inhaler regimen at that time per Dr. Hernandez preference. (3) Anemia: You were started on iron supplementation as well as folic acid supplementation. Please continue evaluation outpatient with your primary care physician. Allergies/Adverse Reactions: Allergies No Known Allergies Allergy (Verified 02/09/19 10:48) Medications to take at Discharge Aspirin [Aspirin, Baby] 81 mg PO DAILY@0800 02/09/19 Multivitamin with Minerals [Multiple Vitamin] 1 each PO DAILY 02/09/19 Vitamin B Complex [B Complex] 1 each PO DAILY 02/09/19 Albuterol IH (ProAir) [Proair Hfa] 1 - 2 puff INHALATION Q4H PRN PRN #1 inhaler 02/13/19 Atorvastatin Calcium [Lipitor] 40 mg PO QHS #30 tablet 02/13/19 Carvedilol [Coreg (Beta Muna)] 12.5 mg PO BID #60 tablet 02/13/19 Fluticasone 0.05% [Flonase Nasal [place]] 1 spray NASAL BID #1 nasal.sry 02/13/19 Folic Acid 1 mg PO DAILY #30 tablet 02/13/19 Furosemide [Lasix] 40 mg PO BID@1000,1800 #60 tablet 02/13/19 Iron Polysaccharide Complex [Ferrex 150] 150 mg PO DAILYCM #30 capsule 02/13/19 Lisinopril [Zestril] 2.5 mg PO DAILY #30 tablet 02/13/19 Potassium Chloride [K-Dur] 40 meq PO DAILYCM #30 tablet 02/13/19 Prednisone 10 mg PO UD #30 tablet 02/13/19 The following prescriptions were given: Albuterol IH (ProAir) [Proair Hfa] 1 - 2 puff INHALATION Q4H PRN PRN #1 inhaler PRN Reason: Dyspnea, wheezing Atorvastatin Calcium [Lipitor] 40 mg PO QHS #30 tablet Folic Acid 1 mg PO DAILY #30 tablet Furosemide [Lasix] 40 mg PO BID@1000,1800 #60 tablet Iron Polysaccharide Complex [Ferrex 150] 150 mg PO DAILYCM #30 capsule Lisinopril [Zestril] 2.5 mg PO DAILY #30 tablet Potassium Chloride [K-Dur] 40 meq PO DAILYCM #30 tablet Prednisone 10 mg PO UD #30 tablet Carvedilol [Coreg (Beta Muna)] 12.5 mg PO BID #60 tablet Fluticasone 0.05% [Flonase Nasal [place]] 1 spray NASAL BID #1 nasal.sry Primary Care Physician: Linda Hooper MD [Primary Care Provider] - Please follow up with your Primary Care Physician in: Follow-up within 3-5 days. Test Results: Test results from this visit will be discussed in further detail at your follow-up appointment, if applicable. Please Follow Up With: Jay Jackson MD When: Follow-up 2-4 weeks. Please Follow Up With: Josh Hernandez DO When: Follow-up 2 weeks w/ CODING TECHNICIAN. Proposed Discharge Date: 02/13/19
--- NOTE | 2019-02-13 13:00 | DCINST_ITS ---
- Discharge Diagnoses Current Active Problems: Current Active and Chronic Problems (1) Acute Systolic CHF Exacerbation with normal coronary arteries and Severe reduced global LV systolic dysfunction (EF 15%) (2) Acute on suspected Chronic COPD Exacerbation, RULED OUT Acute Severe Sepsis and RLL CAP (3) Abnormal TSH (4) Chronic normocytic anemia, Fe Deficiency Anemia (5) Former Tobacco Use: [place] You will use the following diet at home:: Cardiac Your food should be the consistency of: Regular Your liquids should be the consistency of: Regular/Thin Discharge Activity: - - Activity limitations per Cardiology direction. Weight Bearing Status: Weight bearing as tolerated Call your doctor if your incision/area has: Continuous Slow Oozing, Sudden Increased Bleeding, Increased Pain/ Swelling, Increased Redness, Foul Smelling Discharge, Swelling at the incision site Call your doctor if you observe: Fever of 101 or Higher, Inability to urinate, Inability to have a bowel movement, Shortness of breath, Dizziness, Fainting spells, Chest pain, Uncontrolled pain Instructions: Taking Medication to Control Heart Failure, What Is Heart Failure?, Heart Failure: Warning Signs of a Flare-Up, Heart Failure: Tracking Your Weight, Heart Failure: Being Active, Taking Medications for Your Heart, Common Heart Medications, Discharge Instructions for Cardiomyopathy, What is COPD?, Pulmonary Function Tests, Using Oxygen Safely, Traveling with Oxygen Additional Instructions: (1) Abnormal TSH level: During the admission your t hyroid function studies were abnormal with noted TSH 0.20, free T4 1.02 with free T3 2.2, consistent with subclinical presentation. We recommend repeat outpatient testing 6-8 weeks. (2) ? COPD: You will have repeat pulmonary function tesing at follow-up with Pulmonary medicine. You will be started on inhaler regimen at that time per Dr. Hernandez preference. (3) Anemia: You were started on iron supplementation as well as folic acid supplementation. Please continue evaluation outpatient with your primary care physician. Allergies/Adverse Reactions: Allergies No Known Allergies Allergy (Verified 02/09/19 10:48) Medications to take at Discharge Aspirin [Aspirin, Baby] 81 mg PO DAILY@0800 02/09/19 Multivitamin with Minerals [Multiple Vitamin] 1 each PO DAILY 02/09/19 Vitamin B Complex [B Complex] 1 each PO DAILY 02/09/19 Albuterol IH (ProAir) [Proair Hfa] 1 - 2 puff INHALATION Q4H PRN PRN #1 inhaler 02/13/19 Atorvastatin Calcium [Lipitor] 40 mg PO QHS #30 tablet 02/13/19 Carvedilol [Coreg (Beta Muna)] 12.5 mg PO BID #60 tablet 02/13/19 Fluticasone 0.05% [Flonase Nasal [place]] 1 spray NASAL BID #1 nasal.sry 02/13/19 Folic Acid 1 mg PO DAILY #30 tablet 02/13/19 Furosemide [Lasix] 40 mg PO BID@1000,1800 #60 tablet 02/13/19 Iron Polysaccharide Complex [Ferrex 150] 150 mg PO DAILYCM #30 capsule 02/13/19 Lisinopril [Zestril] 2.5 mg PO DAILY #30 tablet 02/13/19 Potassium Chloride [K-Dur] 40 meq PO DAILYCM #30 tablet 02/13/19 Prednisone 10 mg PO UD #30 tablet 02/13/19 The following prescriptions were given: Albuterol IH (ProAir) [Proair Hfa] 1 - 2 puff INHALATION Q4H PRN PRN #1 inhaler PRN Reason: Dyspnea, wheezing Atorvastatin Calcium [Lipitor] 40 mg PO QHS #30 tablet Folic Acid 1 mg PO DAILY #30 tablet Furosemide [Lasix] 40 mg PO BID@1000,1800 #60 tablet Iron Polysaccharide Complex [Ferrex 150] 150 mg PO DAILYCM #30 capsule Lisinopril [Zestril] 2.5 mg PO DAILY #30 tablet Potassium Chloride [K-Dur] 40 meq PO DAILYCM #30 tablet Prednisone 10 mg PO UD #30 tablet Carvedilol [Coreg (Beta Muna)] 12.5 mg PO BID #60 tablet Fluticasone 0.05% [Flonase Nasal [place]] 1 spray NASAL BID #1 nasal.sry Primary Care Physician: Linda Hooper MD [Primary Care Provider] - Please follow up with your Primary Care Physician in: Follow-up within 3-5 days. Test Results: Test results from this visit will be discussed in further detail at your follow- up appointment, if applicable. Please Follow Up With: Jay Jackson MD When: Follow-up 2-4 weeks. Please Follow Up With: Josh Hernandez DO When: Follow-up 2 weeks w/ PIPE BOWLS PAINT TRIMMER. Proposed Discharge Date: 02/13/19
[2019-02-13] MEDS: predniSONE 20 MG Tablet 40 MG PO (13:23)
--- NOTE | 2019-02-13 13:34 | PCM.DC.SUM ---
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 Right lower lobe infiltrate could represent pneumonia. 2. Chronic obstructive airway disease. 3. Cardiomegaly. CT/CTA Chest W/WO Contrast IMPRESSION: Normal CTA chest examination, without a demonstrated pulmonary embolism or arterial dissection. There are calcified plaques of the thoracic aorta. Cardiomegaly is present. There are emphysematous changes of the lungs predominantly involving the upper lobes. There is right lower lobe atelectasis. There are small bilateral pleural effusions, right side larger than left. Echo: Interpretation Summary Normal LV size. The estimated ejection fraction is 15 %. No regional wall motion abnormalities noted. There is severe global hypokinesis of the left ventricle. Pulmonary artery systolic pressure is 60 mmHg. Moderate (2+) tricuspid valve insufficiency. The global longitudinal strain = -7.9% (abnormal). Left Heart Cath CONCLUSIONS Normal coronary arteries Global LV systolic dysfunction- Severe Consults: Renetta - Cardiology Operations: None Procedures: 2-D Echocardiogram, Cardiac catheterization Summary of Care Provided: Hospital course: The patient is a 68 year old F past medical history of COPD, former smoker, anxiety and depression, who presented to the emergency room with increased shortness of breath, found to have a possible infiltrate in the right lower lobe, had an indeterminate troponin, was tachycardic and tachypneic, and hypoxic initially requiring BiPAP and up to 4 L/min of oxygen via nasal cannula to maintain good sats. She did not have a fever or an elevated white blood cell count. Nonetheless she was admitted for suspected community-acquired pneumonia, with associated acute hypoxic respiratory failure, and probable acute COPD exacerbation. She was started on Rocephin and azithromycin, aerosol therapy, and Solu-Medrol. The patient complained of chest discomfort described as tightness, and was significantly tachycardic with minimal improvement in her breathing. Vijaya at slightly increased. An echocardiogram was obtained which demonstrated an EF of 15%. Cardiology was consulted. BNP was significantly elevated. Antibiotics were discontinued and she was started on IV Lasix for acute systolic congestive heart failure. She has no history of this. She was initiated on Coreg which did help control her pulse. Iron and iron saturation and folate were low so she was started on iron and folate supplementation. She diuresed well and when she was able to lay flat she was taken for a heart catheterization which demonstrated clean coronaries. She is felt to have a nonischemic cardiomyopathy. She was discharged home in stable condition. The patient is active in the community and was unable to be weaned off oxygen, so she was felt to require supplemental oxygen at rest and with exertion at discharge. She will follow-up with her PCP in 1 to 2 weeks, she will need to follow-up with cardiology as directed. As she was a former smoker and her CTA showed emphysema, and with her having a COPD exacerbation, we advised her to be seen by multiple wire sawyer who evaluated her while she is in the hospital and agreed to follow-up with her in the office in 2 weeks. This patient was seen by Richar Hughes PA-C under the supervision of Doctor Dennise. [] Patient Problems: Active and Suspected Problems Right lower lobe pneumonia (Acute) Sepsis (Acute) Acute respiratory failure (Acute) - Physical Exam General: Alert, Oriented x3, Cooperative HEENT: Atraumatic, PERRLA, EOMI, Normocephalic Neck: Supple, No JVD, Negative Carotid Bruits Lungs: Clear to auscultation, Normal air movement, Wheezes Cardiovascular: Regular rate, No murmurs Abdomen: Bowel Sounds Present, Soft, Non Tender Extremities: No edema, Capillary Refill Less than 3 Seconds Skin: No rashes, No breakdown Musculoskeletal: No Tenderness to Palpation of Joints or Extremities Neurological: Cranial nerves II-XII grossly intact Psych/Mental Status: Normal Affect, Appropriate, Alert and oriented to time, place, person, mood and affect Vital Signs Temp Pulse Resp BP Pulse Ox 97.5 F L 98 18 107/73 97 02/13/19 09:55 02/13/19 10:44 02/13/19 10:44 02/13/19 09:55 02/13/19 10:44 Oxygen Flow Rate (L/min) 2 Oxygen Delivery Method Nasal Cannula Weight: 132 lb 4.438 oz Body Mass Index (BMI) 24.3 Intake and Output for Last 24 Hours 02/11/19 02/12/19 02/13/19 23:59 23:59 23:59 Intake Total 4000 / 4000 1020 / 1020 Output Total 2175 / 2175 4450 / 4450 Balance 1825 / 1825 -3430 / -3430 Microbiology Past 72 Hours 02/12/19 10:50 Gram Stain - Final Sputum, Expectorated/Coughed Respiratory Culture - Preliminary Yeast Laboratory Tests Past 24 Hrs 02/12/19 02/12/19 02/13/19 05:30 22:40 05:35 WBC 9.3 RBC 3.98 L Hgb 10.2 L Hct 33.5 L MCV 84.2 MCH 25.6 L MCHC 30.4 L RDW 14.9 H RDW Differential 44.8 H Plt Count 374 MPV 9.8 Immature Gran % (Auto) 0.200 Neut % (Auto) 73.8 H Lymph % (Auto) 16.0 L [place] % (Auto) 9.8 Eos % (Auto) 0.2 Baso % (Auto) 0.0 Absolute Neuts (auto) 6.8 Absolute Lymphs (auto) 1.48 Total Counted Not Reportable PT INR APTT Sodium Potassium Chloride Carbon Dioxide Anion Gap BUN Creatinine Estim Creat Clear Calc Est GFR (MDRD) Af Amer Est GFR (MDRD) Non-Af BUN/Creatinine Ratio Glucose Calcium B-Natriuretic Peptide 1806.0 H Urine Color Yellow Urine Clarity Clear Urine pH 7.0 Ur Specific Prole 1.010 Urine Protein Negative Urine Glucose (UA) Normal Urine Ketones Negative Urine Occult Blood Negative Urine Nitrite Negative Urine Bilirubin Negative Urine Urobilinogen Normal Ur Leukocyte Esterase 25 H Urine RBC 0 SEEN Urine WBC 0-5 SEEN Ur Squamous Epith Cells 0-5 SEEN Urine Bacteria RARE Urine Mucus 0 SEEN 02/13/19 02/13/19 05:35 05:35 WBC RBC Hgb Hct MCV MCH MCHC RDW RDW Differential Plt Count MPV Immature Gran % (Auto) Neut % (Auto) Lymph % (Auto) [place] % (Auto) Eos % (Auto) Baso % (Auto) Absolute Neuts (auto) Absolute Lymphs (auto) Total Counted PT 14.4 INR 1.1 APTT 28.7 Sodium 141 Potassium 3.4 L Chloride 103 Carbon Dioxide 31.0 Anion Gap 7 BUN 30 H Creatinine 0.70 Estim Creat Clear Calc 41.76 Est GFR (MDRD) Af Amer 107 Est GFR (MDRD) Non-Af 89 BUN/Creatinine Ratio 42.8 H Glucose 86 Calcium 8.2 L B-Natriuretic Peptide Urine Color Urine Clarity Urine pH Ur Specific Prole Urine Protein Urine Glucose (UA) Urine Ketones Urine Occult Blood Urine Nitrite Urine Bilirubin Urine Urobilinogen Ur Leukocyte Esterase Urine RBC Urine WBC Ur Squamous Epith Cells Urine Bacteria Urine Mucus Discharge Diet: Low fat/ Low Cholesterol, 2000 mg Sodium Diet Discharge Activity: Return to Normal Activity, - - Activity limitations per Cardiology direction. Weight Bearing Status: Weight bearing as tolerated Call your doctor if your incision/area has: Continuous Slow Oozing, Sudden Increased Bleeding, Increased Pain/ Swelling, Increased Redness, Foul Smelling Discharge, Swelling at the incision site Call your doctor if you observe: Fever of 101 or Higher, Inability to urinate, Inability to have a bowel movement, Shortness of breath, Dizziness, Fainting spells, Chest pain, Uncontrolled pain Home Medications: Medications to take at Discharge Aspirin [Aspirin, Baby] 81 mg PO DAILY@0800 02/09/19 Multivitamin with Minerals [Multiple Vitamin] 1 each PO DAILY 02/09/19 Vitamin B Complex [B Complex] 1 each PO DAILY 02/09/19 Albuterol IH (ProAir) [Proair Hfa] 1 - 2 puff INHALATION Q4H PRN PRN #1 inhaler 02/13/19 Atorvastatin Calcium [Lipitor] 40 mg PO QHS #30 tablet 02/13/19 Carvedilol [Coreg (Beta Muna)] 12.5 mg PO BID #60 tablet 02/13/19 Fluticasone 0.05% [Flonase Nasal [place]] 1 spray NASAL BID #1 nasal.sry 02/13/19 Folic Acid 1 mg PO DAILY #30 tablet 02/13/19 Furosemide [Lasix] 40 mg PO BID@1000,1800 #60 tablet 02/13/19 Iron Polysaccharide Complex [Ferrex 150] 150 mg PO DAILYCM #30 capsule 02/13/19 Lisinopril [Zestril] 2.5 mg PO DAILY #30 tablet 02/13/19 Potassium Chloride [K-Dur] 40 meq PO DAILYCM #30 tablet 02/13/19 Prednisone 10 mg PO UD #30 tablet 02/13/19 Following Prescrptions Were Given to Patient: Albuterol IH (ProAir) [Proair Hfa] 1 - 2 puff INHALATION Q4H PRN PRN #1 inhaler PRN Reason: Dyspnea, wheezing Atorvastatin Calcium [Lipitor] 40 mg PO QHS #30 tablet Carvedilol [Coreg (Beta [place])] 12.5 mg PO BID #60 tablet Fluticasone 0.05% [Flonase Nasal [place]] 1 spray NASAL BID #1 nasal.sry Folic Acid 1 mg PO DAILY #30 tablet Furosemide [Lasix] 40 mg PO BID@1000,1800 #60 tablet Iron Polysaccharide Complex [Ferrex 150] 150 mg PO DAILYCM #30 capsule Lisinopril [Zestril] 2.5 mg PO DAILY #30 tablet Potassium Chloride [K-Dur] 40 meq PO DAILYCM #30 tablet Prednisone 10 mg PO UD #30 tablet Primary Care Physician: Linda Hooper MD [Primary Care Provider] - Please follow up with your Primary Care Physician in: Follow-up within 3-5 days. Please Follow Up With: Jay Jackson MD When: Follow-up 2-4 weeks. Please Follow Up With: Josh Hernandez DO When: Follow-up 2 weeks w/ PRIMARY CARE NURSE. Patient Instructions: Taking Medication to Control Heart Failure, What Is Heart Failure?, Heart Failure: Warning Signs of a Flare-Up, Heart Failure: Tracking Your Weight, Heart Failure: Being Active, What is COPD?, Pulmonary Function Tests, Traveling with Oxygen, Using Oxygen Safely, Taking Medications for Your Heart, Common Heart Medications, Discharge Instructions for Cardiomyopathy Disposition: Home Minutes spent on discharge:: 40 Patient Condition:: Stable Medical Necessity - Tobacco Use Smoking Status: Former smoker Tobacco Use: Cigarettes Meaningful Use Info Meaningful Use Diagnoses (Choose all that apply): CHF - CHF JOSE ANGEL/ARB ordered at discharge?: Yes Documented LVEF (%): 15
[2019-02-13] MEDS: Furosemide 40 MG Tablet PO (17:58)
== END 2019-02-13 18:51 | disposition home or self-care (01) | DRG 189 ==
LOC: ED 12:11 → PCU 13:56
PROVIDERS: Internal Medicine Cardiovascular Disease; Physician Assistant; Admitting Provider Family Medicine; Emergency Provider Emergency Medicine; Family Provider Internal Medicine; PCP Internal Medicine; Visit Provider Family Medicine
DX: J96.01 Acute respiratory failure with hypoxia (principal); I50.23 Acute on chronic systolic (congestive) heart failure; J44.1 Chronic obstructive pulmonary disease with (acute) exacerbation; I42.9 Cardiomyopathy, unspecified; D50.9 Iron deficiency anemia, unspecified; D52.9 Folate deficiency anemia, unspecified; R94.6 Abnormal results of thyroid function studies; Z87.891 Personal history of nicotine dependence; F41.9 Anxiety disorder, unspecified; F32.9 Major depressive disorder, single episode, unspecified
CPT/HCPCS: 36415; 71045; 71275; 80048; 80061; 80076; 81001; 82607; 82728; 82746; 83540; 83550; 83605; 83735; 83880; 84439; 84443; 84481; 84484; 85025; 85610; 85730; 87040; 87070; 87205; 87449; 93005; 93306; 93458; 94002; 94003; 94640; 99152; 99153; 99285; J1756; J7030; Q9967; A4216; C1769; C1894; J0295; J1940

== ENCOUNTER → 2019-03-12 | Outpatient (CLI) | payer MEDICARE, SELFPAY ==
[2019-03-06 08:56] VITALS: BMI 22.6
--- NOTE | 2019-03-12 12:16 | PCM.CR.HP2 ---
CR - History & Physical - General Arrival date:: 03/12/19 Arrival time:: 12:00 Date of Referral:: 03/06/19 Date of CR Evaluation:: 03/12/19 Referring Physician: DR. WRIGHT Primary Diagnosis: HEART FAILURE - History of Present Cardiac Event Onset Date: Enter Onset Date of cardiac illnesses in Comment field below Current stable Angina Pectoris:: No Acute Myocardial Infarction within 12 months:: Yes Coronary Artery Bypass Graft:: No Heart valve replacement or repair:: No PTCA or coronary stenting:: No Heart or Heart-Lung Transplant:: No Heart Failure EF <35%:: Yes - EF 15 % Type of Symptoms:: SHORTNESS OF BREATH - Medications Home Medications: Ambulatory Orders Medication Instructions Recorded Multivitamin with Minerals 1 ea PO DAILY 02/09/19 [Multiple Vitamin] Vitamin B Complex [B Complex] 1 ea PO DAILY 02/09/19 Albuterol IH (ProAir) [Proair Hfa] 1 - 2 puff INHALATION Q4H PRN PRN 02/13/19 #1 inhaler Folic Acid 1 mg PO DAILY #30 tab 02/13/19 Iron Polysaccharide Complex 150 mg PO DAILYCM #30 cap 02/13/19 [Ferrex 150] budesonide-formoterol HFA 160 INHALATION 30 Days #10 g 03/06/19 mcg-4.5 mcg/actuation aerosol inhaler carvedilol 25 mg tablet 25 mg PO BID #180 tab 03/06/19 lisinopril 5 mg tablet 5 mg PO DAILY #90 tab 03/06/19 loratadine 10 mg tablet 10 mg PO DAILY 03/06/19 - Allergies Allergies/Adverse Reactions: Allergies No Known Allergies Allergy (Verified 03/06/19 08:56) - Sleep Disorder Evaluation Hx of Sleep Apnea: No Do you snore loudly (louder than talking or can be heard through closed doors)?: No Do you often feel tired/ fatigued/ sleepy during daytime?: No Has anyone observed you stop breathing during sleep?: No History of Hypertension (for STOP score): Yes STOP Results: Negative Advanced Directives - Advanced Directives Power of Concrete Tile Machine Operator: No Living Will: No Advance Directives Information Provided: No - PT STATES SHE HAS PAPERS BUT DOES NOT HAVE THEM FILLED OUT Advance Directives on File: No DNR Order?:: No Past Medical History - Past Medical Illness Medical History: Past Medical History (Last Reviewed 03/06/19 @ 10:35 by Jay Wright MD) Secondary pulmonary arterial hypertension (Chronic) I27.21 Non-rheumatic tricuspid valve insufficiency (Chronic) I36.1 Acute systolic (congestive) heart failure (Chronic) Onset Date: 02/11/19 I50.21 Nonischemic cardiomyopathy (Chronic) I42.8 COPD (chronic obstructive pulmonary disease) J44.9 Normocytic anemia D64.9 Pneumonia J18.9 Sepsis Onset Date: 02/09/19 A41.9 from CAP - Past Surgical History Surgical History: Past Surgical History (Last Reviewed 03/06/19 @ 10:35 by Jay Wright MD) History of left heart catheterization Onset Date: 02/13/19 Z98.890 Surgical History: no surgical history - Family History Summary Family History: Family History (Last Reviewed 03/06/19 @ 10:35 by Jay Wright MD) Father Heart disease Social History - Smoking History Smoking Status: Former smoker Years Smokin Packs Smoked per Day: 0.5 Hx Tobacco Use: Yes Hx Smoking Exposure: Yes - Alcohol Use Alcohol Usage: No - Substance Abuse Hx Substance Use: No - Occupation Occupation (List type of work in comments):: Retired - Hobbies, Recreation, Social Activities Hobbies: Sewing, Reading, Other - SWIMMING,FISHING Recreational Activities: I am able to engage in most, but not all activities Social Environment - Status Marital Status: Single - Current Living Arrangements Living Environment:: Spouse - Children How many children do you have?: 3 Do any of your children live nearby?: Yes - SON AND GRANDCHILD LIVES INHOME - Safety Do you feel safe in your surroundings?: Yes - Assistance Do you need any assistance at home?: NONE Review of Systems - Review of Systems Hints: Right click = Denies ([place]). Left click = Reports ([place]) Review of Present Symptoms: Reports: Shortness of Breath with Exertion, Fatigue, Appetite - Normal, Sleep - Normal. Denies: Shortness of Breath at Rest, PVD, Operative Discomfort, Angina, Wound Healing, Dizziness/Lightheadedness, Heart Arrhythmia/Irregularities - Pain Is Patient Pain Free?: Yes Risk Factor Assessment - Vital Signs Temperature: 98.6 F Respiratory Rate: 16 Pulse Ox: 95 Blood Pressure: 90/40 Nailbeds:: PINK - Pulse Pulse Rate: 72 Pulse Rhythm: Regular - Hypertension How long have you been treated?: NEVER TX BEFORE On medication(s)?: YES Blood Pressure Sitting - Left Arm: 90/40 - Stress Stress: Recent - LOSS OF MOTHER AND YOUNGER SISTER - Blood Cholesterol/Lipids Total Cholesterol (mg/dL) Goal = less than 200 mg/dL: 164 HDL Cholesterol (mg/dL) Goal = less than 40 mg/dL: 91 LDL Cholesterol (mg/dL) Goal = less than 70 mg/dL: 51 Triglycerides (mg/dL) Goal = less than 150 mg/dL: 108 - Diabetes Nutrition Referral for Diabetes: No - Obesity Height: 5 ft 2 in Weight:: 124 lb Weight in Pounds: 124.0 lbs Body Mass Index (BMI): 22.6 Nutritional Referral for Obesity: No - Physical Inactivity Physical Inactivity: None - Risk Stratification Risk Guidelines: Lowest Risk: Risk Factor for Smoking, Risk Factor for Dyslipidemia, Risk Factor for Diabetes, Risk Factor for Obesity, Risk Factor for Hypertension, Moderate Risk: Risk Factor for Sedentary Lifestyle, Risk Factor for Depression - LOSS OF MOTHER AND YOUNGER SISTER LAST YEAR - For Smoking Smoking Risk Guidelines: Smoking Low Risk: None or quit greater than 6 months ago. Smoking Moderate Risk: Smoker or quit 6 months or less ago. Smoking High Risk: Smoker - For Dyslipidemia Dyslipidemia Risk Guidelines: Low Risk: Moderate Risk: High Risk: 15-25% fat 25.1-29% fat >/= 30% fat. <7% sat fat 7-9% sat fat >9% sat fat. <150 mg chol 150-299 mg chol >/= 300 mg chol. LDL <100 LDL 100-129 LDL >/= 130. Chol/HDL ratio <5.0 Chol/HDL ratio 5.0-6.0 Chol/HDL ratio >6.0. Triglycerides <100 Triglycerides 100-149 Triglycerides >/= 150 - For Diabetes Mellitus Diabetes Risk Guidelines: Diabetes Low Risk: HgA1c <6.5% and/or FBG <120. Diabetes Moderate Risk: HgA1c 6.6-7.9% and/or FBG 120-180. Diabetes High Risk: HgA1c >/= 8% and/or FBG >180 - For Obesity/Overweight Obesity/Overweight Risk Guidelines: Obesity Low Risk: BMI <25.0. Obesity Moderate Risk: BMI 25-29.9. Obesity High Risk: BMI >/= 30.0 - For Hypertension Hypertension Risk Guidelines: Hypertension Low Risk: Systolic <120 and Diastolic <80. Hypertension Moderate Risk: Systolic 120-139 and Diastolic 80-89. Hypertension High Risk: Systolic >/= 140 and Diastolic >/= 90 - For Sedentary Lifestyle Sedentary Lifestyle Risk Guidelines: Sedentary Lifestyle Low Risk: >/= 1,500 kcal/week. Sedentary Lifestyle Moderate Risk: 700-1,499 kcal/week. Sedentary Lifestyle High Risk: < 700 kcal/week - For Depression Depression Risk Guidelines: Depression Low Risk: Not clinically depressed. Depression Moderate Risk: Mildly depressed. Depression High Risk: Clinically depressed - Family History Family History: Family History (Last Reviewed 03/06/19 @ 10:35 by Jay Wright MD) Father Heart disease Motivation - Motivation to Participate On a scale of 1 to 10, how prepared are you to commit to attending program?: 9 - NEED TO PUT MY HUSBANDS HEALTH FIRST What do you see as barriers to successfully being able to complete the program?: HUSBANDS HEALTH What do you see as the benefits of succesfully completing the program? In other words, what do you hope to get out of participating in the program?: I HOPEFULLY CAN DO MORE THINGS AND NOT WORRY ABOUT MY HEART Are there issues you are dealing with that will interfere with completing the program?: HUSBANDS HEALTH AND CARE/NEEDS Do you have a spouse or signficant other, family or friends who will help support you to complete the program?: SPOUSE AND FAMILY
--- NOTE | 2019-03-12 12:18 | CR.ITP_ITS ---
General Information - General Information Admitting Diagnosis: HEART FAILURE - Education/Goals Barriers to Learning: None Individual Counseling: Initial Assessment: Stress Cardiac Rehabilitation Goals: 1. Maintain the individual as the primary focus of care. 2. To improve the patient's quality of life. 3. Identification of cardiac risk factors and provide cardiac risk factor management. 4. Enhance the psychosocial status of the patient. 5. Reconditioning enough to allow the patient to resume customary activities. 6. Control symptoms of cardiac disease Scale for measuring improvement of personal goals: Enter appropriate number in Comments. 2 = Unchanged. 3 = Slightly Better. 4 = Moderate Improvement. 5 = Met my Goal Personal Goals: Initial Assessment: Improve management of stress and emotions, Improve energy level, Improve knowledge of cardiac disease, Improve diet and eating habits (eat healthier), Control risk factors (learn risk factor modification) Exercise - Initial Assessment - Visit Date of Eval: 03/12/19 - Stages of Change Stages of Change:: Action - Physician Prescribed Exercise Modalities: Treadmill, Biodyne, Rower, Airdyne, NuStep, SciFit Frequency (days/week): 3x/week for 12 weeks [36 sessions] Intensity: 60-80% age predicted maximum heart rate reserve Target Heart Rate:: 100-130 Nutrition - Initial Assessment - Program Goals Nutrition Program Goals: LDL <70. Total Cholesterol <200. HDL >45. Triglycerides <150. HgbA1C <7%. BMI <25 - Stages of Change Stages of Change:: Action - Lipids Total Cholesterol (mg/dL) Goal = less than 200 mg/dL: 164 HDL Cholesterol (mg/dL) Goal = less than 45 mg/dL: 91 LDL Cholesterol (mg/dL) Goal = less than 70 mg/dL: 51 Triglycerides (mg/dL) Goal = less than 150 mg/dL: 108 - Diabetes Diabetes:: No - Weight Management Height: 5 ft 2 in Weight:: 124 lb - Intervention Referral to dietitian:: No Referral to Diabetic Clinic:: No Will attend diet classes:: Yes - CARD REHAB CLASSES - Education Gave educational materials for:: Signs & symptoms of hypoglycemia, Signs & symptoms of hyperglycemia, Relate diabetes to coronary artery disease, Healthy eating Tobacco - Initial Assessment - Program Goals Tobacco Program Goals: Complete smoking cessation. Attend education classes. Improve Knowledge Test score - Stage of Change Stages of Change:: Action - Learning Barriers Learning Barriers: Ready to Learn - Family Support Do you have family support?: Yes - Tobacco Use Tobacco Use: Non-smoker How long ago did you quit using tobacco products?: Greater than or equal to 6 months ago Years Smokin Do you use smokeless tobacco?: No - Intervention Smoking Cessation Referral:: No Individual Education/Counseling:: Yes - C.R. CLASSES Education Schedule Given:: Yes - INFORMED ABOUT THE ON-LINE CR CLASS MATERIALS - Education Gave educational material for:: Tobacco triggers, Coronary artery disease, Risk factors, Sexuality, Medical compliance, Cardiac A&P, Angina signs & symptoms Psychosocial - Initial Assess - Target Goals Target Goals: Assess presence or absence of depression. Using a valid screening tool, maximizes coping skills. Positive support system - Stages of Change Stages of Change:: Action - Psychosocial Test Tool Used:: HANDS Depression Questionnaire - Intervention PS - Interventions: Yes Attend Stress Management Classes, Yes Uses Stress Management Skills, No Referral to Mental Health, No Referral to [facility] Case Management, No Referral to Physician - Education Gave educational materials for:: Coping techniques, Signs & symptoms of depression, Stress management, Relaxation techniques - Patient/Program Goal Preventative Medication(s):: JOSE ANGEL inhibitor - Assistive Devices Assistive Devices:: None Fall Risk Assessed:: No Patient Health Questionnaire Initial Assessment 1. Little interest or pleasure in doing things: Not at all 2. Feeling down, depressed, or hopeless: Not at all 3. Trouble falling or staying asleep, or sleeping too much: Not at all 4. Feeling tired or having little energy: Several days 5. Poor appetite or overeating: Not at all 6. Feeling bad about yourself -- or that you are a failure or have let yourself or your family down: Not at all 7. Trouble concentrating on things, such as reading the newspaper or watching television: Not at all 8. Moving or speaking so slowly that other people could have noticed. Or the opposite - being so fidgety or restless that you have been moving around a lot more than usual: Not at all 9. Thoughts that you would be better off , or of hurting yourself in some way: Not at all How difficult have these problems made it for you to do your work, take care of things at home, or get along with other people?: Not difficult at all Total Score: 1 CLAUDE-Q SV Test - Statements CAD is a disease of the arteries in the heart: True Examples of risk factors for heart disease: True Angina is chest pain or discomfort: I Don't Know The benefits of resistance training include: True Eating more meat and dairy products: False Anti-platelet medications such as aspirin are important: I Don't Know The only effective way to manage stress: False An exercise warm-up slowly increases heart rate: True Prepared, processed foods usually have high sodium: True Depression is common after a heart attack: I Don't Know The statin medications lower cholesterol: True To control blood pressure, lower the amount of sodium: I Don't Know If someone gets chest discomfort during walking: False Transfats are partially hydrogenated vegetable oils: I Don't Know Sleep apnea that is not treated increases the risk: False To control cholesterol, one should become a vegetarian: False Someone knows if he/she is exercising at the right level: I Don't Know Diabetes cannot be prevented with exercise & health eating: False Stress is a large risk for heart attack: True A diet that can help lower blood pressure is rich in: True - Total Score Total Correct Responses: 13 Self-Efficacy Initial Assessment We would like to know how confident you are in doing certain activities. Please select your confidence level for:: Select your confidence level for the following using the scale 1-10 where 1 is not at all confident and 10 is totally confident. Your score is the average of all 6 responses. Fatigue: How confident are you that you can keep the fatigue caused by your disease from interfering with the things you want to do? Select Number: 5 Physical Discomfort or Pain: How confident are you that you can keep the physical discomfort or pain of your disease from interfering with the things you want to do? Select Number: 9 Emotional Distress: How confident are you that you can keep the emotional distress caused by your disease from interfering with the things you want to do? Select Number: 6 Other Symptoms or Health Problems: How confident are you that you can keep other symptoms or health problems from interfering with the things you want to do? Select Number: 6 Different Tasks and Activities: How confident are you that you can do the different tasks and activities needed to manage your health condition so as to reduce your need to see a doctor? Select Number: 6 Medication: How confident are you that you can do things other than just taking medication to reduce how much your illness affects your everyday life? Select Number: 5 Total Score:: 6 Nutrition Survey - Nutrition Survey Instructions Scoring Instructions: Scoring is as follows: Yes = 1 points. No = 0 point. Patient score that is >/=12 is considered to be at potential nutritional risk and could benefit from a referral to a registered dietitian. - Nutrition Survey Initial Have you lost >10 lbs over the past 2 months without trying?: No Are you following a special diet at home for diabetes, low fat, or low salt?: No Are you interested in meeting with a dietitian for help understanding your diet?: No Do you eat less than 3 meals a day?: No Do you eat fatty meats (corona, sausage, ribs, etc), fried foods, desserts, large amounts of salad dressings, margarine, butter, or cheese most days?: No Do you have food allergies? [Enter types in comment field]: No Do you eat in restaurants more than 3 times a week?: No Do you used canned, boxed, frozen meals, or soups, seasoning packets?: No
[2019-03-12 12:38] VITALS: BP 90/40; PULSE 72; RESP 16; TEMP 37; O2SAT 95; BMI 22.6
== END | disposition home or self-care (01) ==
PROVIDERS: Family Provider Internal Medicine; PCP Internal Medicine; Referring Provider Internal Medicine Cardiovascular Disease; Visit Provider Internal Medicine Cardiovascular Disease
DX: I50.9 Heart failure, unspecified (principal)

== ENCOUNTER 2019-03-27 06:23 | Outpatient (RCR) | payer MEDICARE, SELFPAY ==
[2019-03-12 12:38] VITALS: BMI 22.6
== END 2019-04-24 23:59 ==
LOC: CR 06:23
PROVIDERS: Family Provider Internal Medicine; PCP Internal Medicine; Referring Provider Internal Medicine Cardiovascular Disease; Visit Provider Internal Medicine Cardiovascular Disease
DX: I27.21 Secondary pulmonary arterial hypertension (principal); I36.1 Nonrheumatic tricuspid (valve) insufficiency; I50.21 Acute systolic (congestive) heart failure; I42.8 Other cardiomyopathies
CPT/HCPCS: 93798

== ENCOUNTER → 2019-07-03 | Outpatient (CLI) | payer MEDICARE, SELFPAY ==
[2019-03-06 08:56] VITALS: BMI 22.6
[2019-03-12 12:38] VITALS: BMI 22.6
--- NOTE | 2019-07-03 08:52 | ECHOD_ITS ---
Reason For Study: CHF Procedure This was a 2D Doppler, Color Flow transthoracic echocardiogram. Myocardial strain analysis was performed in this exam to aid in the assessment of cardiac function. Exam performed in department. Left Ventricle Normal LV size. Left ventricular systolic function is normal. The estimated ejection fraction is 50 %. Stage 1 diastolic dysfunction. No regional wall motion abnormalities noted. Right Ventricle Normal RV size. Normal systolic function. Atria Normal left atrium. Normal right atrium. Mitral Valve Normal mitral valve. Mild (1+) eccentric mitral valve insufficiency. Tricuspid Valve Normal tricuspid valve. Mild (1+) tricuspid valve insufficiency. Pulmonary artery systolic pressure is 42 mmHg. Aortic Valve Normal aortic valve. Pulmonic Valve Normal pulmonic valve. Great Vessels Normal aortic root. The pulmonary artery is normal size. Normal inferior vena cava. Pericardium/Pleural No pericardial effusion. MMode/2D Measurements & Calculations LVIDd: 5.3 cm IVSd: 1.1 cm Ao root diam: 3.1 cm LVIDs: 3.9 cm LVPWd: 1.1 cm LA dimension: 3.9 cm RVDd: 3.0 cm FS: 26.8 % LAV(MOD-bp): 59.8 ml LA A4 area: 19.0 cm2 RA A4 area: 16.0 cm2 LAV(MOD-bp) Indexed: 38.3 ml/m2 LAV(MOD-sp2): 61.6 ml LAV(MOD-sp4): 56.2 ml Time Measurements MV dec time: 0.16 sec Doppler Measurements & Calculations MV E max tom: 65.5 cm/sec Lat Peak E' Tom: 3.8 cm/sec Med Peak E' Tom: 4.6 cm/sec MV A max tom: 110.0 cm/sec E/E' lat: 17.3 E/E' med: 14.4 MV E/A: 0.60 Ao V2 max: 107.9 cm/sec LV V1 max: 74.3 cm/sec PA V2 max: 71.1 cm/sec Ao max P.7 mmHg LV V1 max P.2 mmHg PI end-d tom: 125.4 cm/sec TR max tom: 306.3 cm/sec TR max P.5 mmHg Interpretation Summary Normal LV size. Left ventricular systolic function is normal. The estimated ejection fraction is 50 %. Mild (1+) tricuspid valve insufficiency. Stage 1 diastolic dysfunction. The global longitudinal strain is normal. The global longitudinal strain = -18.1 % (normal). Compared to previous study, the left ventricular systolic function has improved.. Ordering Physician: Jay Jackson Referring Physician: Linda Hooper Performed By: Sylvia Abarca RDCS, RVT
== END | disposition home or self-care (01) ==
LOC: CVS 08:51
PROVIDERS: Family Provider Internal Medicine; PCP Internal Medicine; Referring Provider Internal Medicine Cardiovascular Disease; Visit Provider Internal Medicine Cardiovascular Disease
DX: I27.21 Secondary pulmonary arterial hypertension (principal); I50.9 Heart failure, unspecified
CPT/HCPCS: 93306

== ENCOUNTER → 2020-07-28 12:52 | Outpatient (CLI) | payer MEDICARE, SELFPAY ==
[2020-06-25 15:47] VITALS: BMI 26.2
--- NOTE | 2020-07-28 12:52 | ECHOD_ITS ---
Reason For Study: DYSPNEA Procedure This was a 2D Doppler, Color Flow transthoracic echocardiogram. Exam performed in department. Left Ventricle Normal LV size. Left ventricular systolic function is lower limits of normal. The estimated ejection fraction is 50 %. Stage 1 diastolic dysfunction. No regional wall motion abnormalities noted. Right Ventricle Normal RV size. Normal systolic function. Atria Normal left atrium. Normal right atrium. Mitral Valve Normal mitral valve. Tricuspid Valve Normal tricuspid valve. Mild (1+) tricuspid valve insufficiency. Pulmonary artery systolic pressure is 36 mmHg. Aortic Valve Trisinus/trileaflet aortic valve. Pulmonic Valve Normal pulmonic valve. Great Vessels Normal aortic root. The pulmonary artery is normal size. Normal inferior vena cava. Pericardium/Pleural No pericardial effusion. MMode/2D Measurements & Calculations LVIDd: 4.4 cm IVSd: 1.1 cm Ao root diam: 3.2 cm LVIDs: 2.9 cm LVPWd: 1.1 cm RVDd: 2.7 cm FS: 35.0 % LAV(MOD-bp): 39.1 ml LA A4 area: 14.6 cm2 LA dimension(2D): 3.8 cm LAV(MOD-bp) Indexed: 23.2 ml/m2 LAV(MOD-sp2): 47.6 ml LAV(MOD-sp4): 32.8 ml RA A4 area: 13.6 cm2 Time Measurements MV dec time: 0.21 sec Doppler Measurements & Calculations MV E max tom: 61.6 cm/sec Lat Peak E' Tom: 4.9 cm/sec Med Peak E' Tom: 5.4 cm/sec MV A max tom: 110.3 cm/sec E/E' lat: 12.6 E/E' med: 11.5 MV E/A: 0.56 Ao V2 max: 131.7 cm/sec LV V1 max: 85.9 cm/sec PA V2 max: 81.7 cm/sec Ao max P.9 mmHg LV V1 max P.0 mmHg PI end-d tom: 135.0 cm/sec TR max tom: 283.7 cm/sec TR max P.2 mmHg Interpretation Summary Normal LV size. Left ventricular systolic function is lower limits of normal. The estimated ejection fraction is 50 %. Stage 1 diastolic dysfunction. Compared to prior study, there is no significant change. Ordering Physician: Jay Jackson Referring Physician: NICK LI Performed By: Glenna Miranda, TUCKERCS, RVT
== END ==
LOC: CVS 12:52
PROVIDERS: PCP Internal Medicine; Referring Provider Internal Medicine Cardiovascular Disease; Visit Provider Internal Medicine Cardiovascular Disease
DX: R06.00 Dyspnea, unspecified (principal); I42.8 Other cardiomyopathies; R06.09 Other forms of dyspnea
CPT/HCPCS: 93306

== ENCOUNTER 2021-03-21 19:56 | Emergency (ER) | payer MEDICARE, SELFPAY ==
[2021-03-21] VITALS (7 sets, daily range): BP systolic 126–157; BP diastolic 60–75; PULSE 70–90; RESP 14–18; TEMP 36.7; O2SAT 93–97; BMI 26.5
--- NOTE | 2021-03-21 20:11 | EKG12_ITS ---
Test Reason : CP Blood Pressure : / mmHG Vent. Rate : 080 BPM Atrial Rate : 080 BPM P-R Int : 156 ms QRS Dur : 090 ms QT Int : 376 ms P-R-T Axes : 073 043 050 degrees QTc Int : 433 ms Poor data quality, interpretation may be adversely affected Sinus rhythm with marked sinus arrhythmia with occasional Premature ventricular complexes Possible Left atrial enlargement Nonspecific ST abnormality Abnormal ECG Confirmed by ADRIANA FORTE, PRITESH ([id number]), make up editor LAUREN CASTRO ([id number]) on 03/23/2021 9:10:19 AM Referred By: Confirmed By:PRITESH WRIGHT MD
--- NOTE | 2021-03-21 20:11 | RAD_ITS ---
EXAM: XR CHEST, 1 VIEW : 1950 CLINICAL INDICATION: chest pain TECHNIQUE: Frontal view of the chest. This report was created using [employer] report generation technology. COMPARISON: None. FINDINGS: LUNGS AND PLEURAL SPACES: There is a retrocardiac opacity which may represent left lower lobe airspace disease. No pneumothorax. No effusion. HEART: Unremarkable. Cardiac silhouette not enlarged. MEDIASTINUM: Central airways and mediastinal contour are unremarkable. BONES/JOINTS: Unremarkable. SOFT TISSUES: Unremarkable. RAD/Chest 1 View (Portable) IMPRESSION: Retrocardiac opacity which may represent left lower lobe atelectasis or pneumonia. at 2120 Reported and signed by: Roland Bonilla MD Electronically Signed: Roland Bonilla MD at 21:19 EDT Tel , Service support ,
--- NOTE | 2021-03-21 20:12 | ED.VIS.CHEST ---
HPI History of Present Illness Chief Complaint: Chest Pain Informant: patient Onset/Context/Timing Onset: Hours (4 hours) Activity at onset: gradual Timing: Continuous Quality: Positive for Pressure Location: Right Chest Current Severity: Moderate Maximum Severity: Moderate Narrative Narrative: Patient presents with right chest pressure that started around 4 PM this afternoon while she was feeding her dogs. Patient states is been constant. She did take 1 baby aspirin at home today. She thought maybe she was just dehydrated so she drank some extra fluids with no change in her symptoms. She did notice her blood pressure to be elevated at home. [facility] Medical History (Updated 03/21/21 @ 23:[address] Eva Rene MD) Chronic systolic (congestive) heart failure COPD (chronic obstructive pulmonary disease) Non-rheumatic tricuspid valve insufficiency Nonischemic cardiomyopathy Normocytic anemia Secondary pulmonary arterial hypertension Home Medications multivitamin with minerals 1 ea PO DAILY 02/09/19 [History Last Taken Unknown] vitamin B complex 1 ea PO DAILY 02/09/19 [History Last Taken Unknown] albuterol sulfate 1 - 2 puff INHALATION Q4H PRN PRN #1 inhaler 02/13/19 [Rx Last Taken Unknown] folic acid 1 mg PO DAILY #30 tab 02/13/19 [Rx Last Taken Unknown] loratadine 10 mg tablet 10 mg PO DAILY 03/06/19 [History Last Taken Unknown] fluticasone fur. 100 mcg-umeclid 62.5 mcg-vilant 25 mcg inhalat.powder 1 inh INHALATION DAILY 07/26/19 [History Last Taken Unknown] furosemide 40 mg tablet 40 mg PO DAILY tab 06/25/20 [History Last Taken Unknown] polysaccharide iron complex 150 mg iron capsule 150 mg PO DAILYCM cap 06/25/20 [History Last Taken Unknown] carvedilol 25 mg tablet 25 mg PO BID #180 tab 12/24/20 [Rx Last Taken Unknown] pantoprazole 40 mg tablet,delayed release 40 mg PO DAILY 12/24/20 [History Last Taken Unknown] Allergy/AdvReac Type Severity Reaction Status Date / Time No Known Allergies Allergy Verified 03/21/21 20:04 Family History Father Heart disease Surgical History History of left heart catheterization (02/13/19) Social History Smoking Status: Former smoker ROS ROS ED Constitutional Constitutional ED: Denies chills or fever(s) Eyes Eyes: Denies change in vision ENT ENT ED: Denies sore throat Cardiovascular Cardiovascular: Reports chest pain Respiratory/Chest Respiratory/Chest: Denies cough or dyspnea Gastrointestinal Gastrointestinal: Denies abdominal pain, diarrhea, nausea or vomiting Genitourinary Genitourinary ED: Denies dysuria Musculoskeletal Musculoskeletal: Denies back pain Integumentary Denies rash Neurologic Neurologic: Denies headache(s) or weakness Psychiatric Psychiatric: Denies anxiety or depression Endocrine Endocrinology: Denies polydipsia or polyuria Allergic/Immunologic Allergic/Immunologic ED: Denies urticaria EXAM Physical Exam Const Vital Signs: 03/21/21 19:57 03/21/21 19:59 03/21/21 20:43 Temperature 98.1 F Temperature Source Oral Pulse Rate 90 Respiratory Rate 14 Respiratory Effort Normal Blood Pressure 157/75 H Blood Pressure Mean 102 Pulse Ox 97 95 Oxygen Delivery Method Room Air Room Air 03/21/21 20:56 03/21/21 21:28 03/21/21 22:14 Temperature Temperature Source Pulse Rate 75 70 70 Respiratory Rate 16 18 18 Respiratory Effort Blood Pressure 131/70 H 141/62 H 136/62 H Blood Pressure Mean 90 88 86 Pulse Ox 95 94 93 Oxygen Delivery Method Room Air Room Air Room Air 03/21/21 23:20 Temperature Temperature Source Pulse Rate 76 Respiratory Rate 16 Respiratory Effort Blood Pressure 133/64 H Blood Pressure Mean 87 Pulse Ox 96 Oxygen Delivery Method Room Air Positive well nourished and well developed General Appearance ED: well developed HEENT Reports normocephalic and head/scalp atraumatic Eyes PERRL and EOMs intact bilaterally Neck supple Chest Wall inspection of chest normal and palpation of chest normal Resp normal respiratory effort and clear to auscultation bilaterally Cardio regular rate and regular rhythm GI normal to inspection, nondistended, normoactive bowel sounds Palpation: soft Back/Spine no CVA tenderness Extremity normal to inspection Neuro oriented x3 and no sensory deficits noted Sensorium / Orientation: alert Motor Exam: strength 5/5 throughout Psych mental status grossly normal Skin no rashes or lesions noted Heart Score History: Slightly/Non-Suspicious ECG: Normal Age: >/= 65 years Risk Factors: 1 or 2 Risk Factors Troponin: </= Normal Limit Score: 3 MDM MDM MDM Narrative Medical decision making narrative: Patient had taken 1 baby aspirin prior to arrival. She was given 3 additional baby aspirin here. Labs, EKG, chest x-ray obtained. Lab Data Attestation: I reviewed the patient's lab results. Labs: Laboratory Results - last 24 hr 03/21/21 03/21/21 03/21/21 20:07 20:07 22:06 WBC 7.1 RBC 4.17 L Hgb 11.1 L Hct 35.9 L MCV 86.1 MCH 26.6 L MCHC 30.9 L RDW Std Deviation 41.4 RDW Coeff of Smooth 13.2 Plt Count 327 MPV 9.7 Immature Gran % (Auto) 0.300 Neut % (Auto) 61.0 Lymph % (Auto) 25.9 Alexander % (Auto) 11.1 H Eos % (Auto) 1.3 Baso % (Auto) 0.4 Absolute Neuts (auto) 4.4 Absolute Lymphs (auto) 1.85 Nucleated RBC % 0 Sodium 133 L Potassium 3.1 L Chloride 95 L Carbon Dioxide 27.0 Anion Gap 11 BUN 8 Creatinine 0.79 Estim Creat Clear Calc 42.59 Est GFR (MDRD) Af Amer 93 Est GFR (MDRD) Non-Af 77 BUN/Creatinine Ratio 10.1 Glucose 122 H Calcium 8.6 Troponin I High Sens 13.5 16.5 Radiography Chest X-Ray - ED: 1 View, Read by ED Physician and Chronic Changes Diagnostic Testing: Radiology Impression Chest X-Ray 03/21/21 20:11 IMPRESSION: Retrocardiac opacity which may represent left lower lobe atelectasis or pneumonia. at 2120 Reported and signed by: Roland Bonilla MD Electronically Signed: Roland Bonilla MD at 21:19 EDT Tel , Service support , Chest CTA 03/21/21 22:55 IMPRESSION: 1. No evidence of pulmonary embolus. 2. Mild emphysematous changes in the upper lobes. Individualized dose optimization techniques were used for this CT. at 2337 Reported and signed by: Roland Bonilla MD Electronically Signed: Roland Bonilla MD at 23:36 EDT Tel , Service support , EKG Initial EKG: Attestation: I personally reviewed and interpreted this EKG as follows: Interpretation: Sinus Rhythm (Sinus at [address] change. Single PVC noted.) Follow-up EKG: Attestation: I personally reviewed and interpreted this EKG as follows: Interpretation: Sinus Rhythm (Sinus at 67 with no acute ischemia.) Treatment and Re-Evaluation Comments:: I did review the patient's prior records. She had a cardiac cath in 2019 that showed normal vessels with no disease. Pain is atypical for cardiac etiology. She has no associated symptoms such as shortness of breath, diaphoresis, etc. Lab work is reviewed. Initial high-sensitivity troponin is 13. 2-hour delta troponin is 16 for a change of only 3 points. CTA of the chest is obtained. Patient does have hiatal hernia which explains the density noted on portable chest x-ray in the retrocardiac space. No evidence of PE is noted. On repeat evaluation patient is resting comfortably. Test results were discussed with her. She is comfortable with discharge to home and will follow up with her PCP regarding her hiatal hernia. Discharge Plan Triage Chief Complaint: Chest Pain ED Provider: Eva Rene Dx/Rx/DC Orders Clinical Impression: Atypical chest pain, Hernia, hiatal Instructions: ED Chest Pain, Uncertain Cause, ED Hiatal Hernia Prescriptions: No Action loratadine 10 mg tablet 10 mg PO DAILY RF: 0 Trelegy Ellipta 100-62.5-25 mcg blister with device 1 inh INHALATION DAILY RF: 0 polysaccharide iron complex 150 mg iron capsule 150 mg PO DAILYCM RF: 0 furosemide 40 mg tablet 40 mg PO DAILY RF: 0 pantoprazole 40 mg tablet,delayed release (DR/EC) 40 mg PO DAILY RF: 0 carvedilol 25 mg tablet 25 mg PO BID Qty: 180 RF: 3 vitamin B complex 1 EACH tablet 1 ea PO DAILY RF: 0 multivitamin with minerals 1 EACH tablet 1 ea PO DAILY RF: 0 albuterol sulfate 1 PUFF inhaler 1 - 2 puff inhalation Q4H PRN PRN (Reason: Dyspnea, wheezing) Qty: 1 RF: 0 folic acid 1 MG tablet 1 mg PO DAILY Qty: 30 RF: 0 Primary Care Provider: Linda Hooper Referrals: Linda Hooper MD [Primary Care Provider] - 1 Week Disposition Disposition: Home, Self Care
[2021-03-21 20:17] LABS: Absolute Lymphocyte Count 1.85 X10^3/uL (0.83-4.51); Absolute Neutrophil Count 4.4 X10^3/uL (2.0-7.7); Basophil# 0.03 X10^3/uL; Basophil% 0.4 % (0-1); Eosinophil# 0.09 X10^3/uL; Eosinophils% 1.3 % (0-5); Hematocrit 35.9 % (37-47); Hemoglobin 11.1 g/dL (12.0-15.0); Lymphocyte # 1.85 X10^3/ul (0.83-4.51); Lymphocyte % 25.9 % (19-41); Mean Corp Hgb Conc 30.9 g/dL (32-36); Mean Corpuscular Hgb 26.6 pg (27.0-32.0); Mean Corpuscular Volume 86.1 fL (81-99); Mean Platelet Vol. 9.7 fl (6.2-12.0); Monocyte# 0.79 X10^3/uL; Monocyte% 11.1 % (0-10); NRBC Flagged by Analyzer 0 % (0-5); Neutrophil # 4.36 X10^3/uL (2.7-7.7); Platelet Count 327 K/mm3 (150-450); RBC Distribution Width CV 13.2 % (11.6-14.6); RBC Distribution Width SD 41.4 fl (35.1-43.9); Red Blood Count 4.17 M/mm3 (4.2-5.4); White Blood Count 7.1 K/mm3 (4.4-11.0)
[2021-03-21 20:36] LABS: Anion Gap 11 (5-15); BUN 8 mg/dL (7-18); BUN/Creat Ratio 10.1 RATIO (10-20); Calcium,Total 8.6 mg/dL (8.5-10.1); Chloride 95 mmol/L (98-107); Creatinine, Serum 0.79 mg/dL (0.55-1.02); EST Glomerular Filtration Rate 77 mL/min (>60); Est Glom Filt Rate - Afr Amer 93 mL/min (>60); Estimated Creatinine Clearance 42.59 ml/min; Glucose 122 mg/dL (74-106); Potassium 3.1 mmol/L (3.5-5.1); Sodium Level 133 mmol/L (136-145); Troponin-I HS 13.5 pg/mL (3.0-53.7)
[2021-03-21] MEDS: Aspirin 81 MG TAB.CHEW 243 MG PO (20:40)
[2021-03-21] MEDS: Potassium Chloride Oral Tablet 20 MEQ 40 MEQ PO (20:59)
--- NOTE | 2021-03-21 22:00 | EKG12_ITS ---
Test Reason : REPEAT Blood Pressure : / mmHG Vent. Rate : 067 BPM Atrial Rate : 067 BPM P-R Int : 154 ms QRS Dur : 084 ms QT Int : 418 ms P-R-T Axes : 041 -02 036 degrees QTc Int : 441 ms Normal sinus rhythm Normal ECG Confirmed by PRITESH WRIGHT MD ([id number]), publishing editor LAUREN CASTRO ([id number]) on 03/23/2021 9:10:44 AM Referred By: ALVA Confirmed By:PRITESH WRIGHT MD
[2021-03-21 22:31] LABS: Troponin-I HS 16.5 pg/mL (3.0-53.7)
--- NOTE | 2021-03-21 22:55 | CT_ITS ---
EXAM: CT ANGIOGRAPHY CHEST WITHOUT AND WITH INTRAVENOUS CONTRAST : 1950 CLINICAL INDICATION: cp TECHNIQUE: Helically acquired angiography images were obtained of the chest without and with intravenous contrast. This CT exam was performed using one or more of the following dose reduction techniques: automated exposure control, adjustment of the mA and/or kV according to patient size, and/or use of iterative reconstruction technique. This report was created using [employer] report generation technology. MIP reconstructed images were created and reviewed. CONTRAST: IV 75mL [id number] COMPARISON: None. FINDINGS: PULMONARY ARTERIES: Unremarkable. Normal in caliber. No evidence of pulmonary embolism. AORTA: Unremarkable. Normal in caliber. No evidence of dissection. GREAT VESSELS OF AORTIC ARCH: Unremarkable. Normal in caliber. No evidence of dissection. LUNGS AND PLEURAL SPACES: There are mild emphysematous changes in the upper lobes. No mass. No pleural effusion or thickening. No pneumothorax. HEART: Unremarkable. Heart size is normal. No pericardial effusion. No signs of right heart strain. MEDIASTINUM: There is a small to moderate size hiatal hernia. No mediastinal or hilar adenopathy. Esophagus is unremarkable. THYROID: Unremarkable. No thyroid lesions. BONES/JOINTS: Unremarkable. No suspicious lytic or blastic abnormality. CT/CTA Chest W/WO Contrast IMPRESSION: 1. No evidence of pulmonary embolus. 2. Mild emphysematous changes in the upper lobes. Individualized dose optimization techniques were used for this CT. at 2337 Reported and signed by: Roland Bonilla MD Electronically Signed: Roland Bonilla MD at 23:36 EDT Tel , Service support ,
== END 2021-03-21 23:56 | disposition home or self-care (01) ==
PROVIDERS: Emergency Provider Emergency Medicine; PCP Internal Medicine
DX: R07.89 Other chest pain (principal); K44.9 Diaphragmatic hernia without obstruction or gangrene; J44.9 Chronic obstructive pulmonary disease, unspecified; I50.22 Chronic systolic (congestive) heart failure; I27.21 Secondary pulmonary arterial hypertension; I42.8 Other cardiomyopathies; Z79.899 Other long term (current) drug therapy; Z87.891 Personal history of nicotine dependence
CPT/HCPCS: 71045; 71275; 80048; 84484; 85025; 93005; 99285; Q9967; A4216

== ENCOUNTER 2021-10-20 09:02 | Outpatient (CLI) | payer MEDICARE, SELFPAY ==
--- NOTE | 2021-10-20 09:07 | ECHOD_ITS ---
Reason For Study: CHF Procedure This was a 2D Doppler, Color Flow transthoracic echocardiogram. Myocardial strain analysis was performed in this exam to aid in the assessment of cardiac function. Exam performed in department. Left Ventricle Normal LV size. Left ventricular systolic function is normal. The estimated ejection fraction is 55 %. Stage 1 diastolic dysfunction. No regional wall motion abnormalities noted. Right Ventricle Normal RV size. Normal systolic function. Atria Normal left atrium. Normal right atrium. Mitral Valve Normal mitral valve. Tricuspid Valve Normal tricuspid valve. Mild (1+) tricuspid valve insufficiency. Pulmonary artery systolic pressure is 30 mmHg. Aortic Valve Normal aortic valve. Trisinus/trileaflet aortic valve. Pulmonic Valve Normal pulmonic valve. Great Vessels Normal aortic root. The pulmonary artery is normal size. Normal inferior vena cava. Pericardium/Pleural No pericardial effusion. MMode/2D Measurements & Calculations LVIDd: 4.6 cm IVSd: 0.99 cm LA dimension: 3.5 cm LVIDs: 3.4 cm LVPWd: 1.1 cm RVDd: 3.0 cm FS: 26.7 % LAV(MOD-bp): 65.5 ml LVAd ap4: 22.5 cm2 LVAd ap2: 23.2 cm2 LAV(MOD-bp) Indexed: 40.0 ml/m2 LVLd ap4: 7.0 cm LVLd ap2: 6.7 cm LAV(MOD-sp2): 46.5 ml EDV(MOD-sp4): 62.2 ml EDV(MOD-sp2): 64.9 ml LAV(MOD-sp4): 75.3 ml EDV(sp4-el): 61.7 ml EDV(sp2-el): 68.5 ml LVAs ap4: 12.4 cm2 LVAs ap2: 12.4 cm2 LVLs ap4: 6.4 cm LVLs ap2: 5.5 cm ESV(MOD-sp4): 20.3 ml ESV(MOD-sp2): 23.1 ml ESV(sp4-el): 20.5 ml ESV(sp2-el): 23.5 ml EF(MOD-sp4): 67.4 % EF(MOD-sp2): 64.3 % EF(sp4-el): 66.8 % SV(MOD-sp4): 41.9 ml SV(MOD-sp2): 41.7 ml SV(sp4-el): 41.2 ml LA A4 area: 23.2 cm2 RA A4 area: 16.0 cm2 Time Measurements MV dec time: 0.19 sec Doppler Measurements & Calculations MV E max tom: 84.9 cm/sec Lat Peak E' Tom: 7.3 cm/sec Med Peak E' Tom: 6.8 cm/sec MV A max tom: 107.2 cm/sec E/E' lat: 11.6 E/E' med: 12.4 MV E/A: 0.79 MV V2 max: 130.7 cm/sec MV P1/2t max tom: 95.1 cm/sec Ao V2 max: 100.4 cm/sec MV max P.8 mmHg MV P1/2t: 58.0 msec Ao max P.0 mmHg MV V2 mean: 72.2 cm/sec MV dec slope: 480.6 cm/sec2 MV mean P.5 mmHg MV V2 VTI: 25.6 cm MVA(P1/2t): 3.8 cm2 LV V1 max: 72.5 cm/sec MR max tom: 591.2 cm/sec TV V2 max: 279.8 cm/sec LV V1 max P.1 mmHg MR max P.8 mmHg TV max P.3 mmHg MR mean tom: 460.7 cm/sec MR mean P.3 mmHg MR VTI: 225.6 cm PA V2 max: 67.3 cm/sec TR max tom: 255.5 cm/sec TR max P.4 mmHg ECHO/Echo Complete Interpretation Summary Normal LV size. Left ventricular systolic function is normal. The estimated ejection fraction is 55 %. Stage 1 diastolic dysfunction. The global longitudinal strain is normal. The global longitudinal strain = -19. 9 % (normal). Ordering Physician: Jay Jackson Referring Physician: Linda Hooper M.D. Performed By: Ayad Palacios R[facility]
== END 2021-10-20 23:59 | disposition short-term general hospital (02) ==
LOC: CVS 09:06
PROVIDERS: PCP Internal Medicine; Referring Provider Internal Medicine Cardiovascular Disease; Visit Provider Internal Medicine Cardiovascular Disease
DX: I42.8 Other cardiomyopathies (principal); I50.30 Unspecified diastolic (congestive) heart failure
CPT/HCPCS: 93306

== ENCOUNTER → 2024-04-18 | Outpatient (CLI) | payer MEDICARE, SELFPAY ==
[2024-04-18 14:55] LABS: Pathologist Comment May follow
[2024-04-18 19:38] LABS: AUTO B FLUID DILUENT BKGD CT WBC <0.1 RBC <0.01 (W<.1,R<.01); Appearance /Synovial Fluid Sl Cl (CLEAR); CRYSTALS, BODY FLUID See PATH REV; Color / Synovial Fluid Yellow (Pale Yellow); Source / Synovial Fluid L.ELBOW; Source- Body Fluid SYNOVIAL
[2024-04-18 19:39] LABS: RBC /Synovial Fluid 0.007 10^6/uL (0)
[2024-04-18 19:40] LABS: Synovial Fld Mononuclear WBC # 1.376 10^3/ul; Synovial Fld Mononuclear WBC % 10.2 %; Synovial Fld Polynuclear WBC # 12.112 10^3/uL; Synovial Fld Polynuclear WBC % 89.8 %
[2024-04-18 19:42] LABS: Monocyte /Synovial Fluid 7 %; Neutrophil 93 % (0-25)
[2024-04-19 13:24] LABS: Pathologist Review Reviewed
== END | disposition home or self-care (01) ==
LOC: LAB 14:39
PROVIDERS: PCP Internal Medicine; Referring Provider Orthopaedic Surgery; Visit Provider Orthopaedic Surgery
DX: M70.22 Olecranon bursitis, left elbow (principal)
CPT/HCPCS: 87015; 87070; 87075; 87116; 87205; 87206; 89050; 89051; 89060